=== PATIENT | male | born 1960 | race African-American/Black ===

== ENCOUNTER → 2017-12-22 | Outpatient (CLI) | payer OTHER | END | disposition home or self-care (01) | LOC: KCIC US 08:44 | DX: R16.0 Hepatomegaly, not elsewhere classified (principal) | CPT/HCPCS: 76705 ==

== ENCOUNTER → 2018-10-27 | Outpatient (CLI) | payer OTHER ==
[2015-03-14 18:42] VITALS: BP 187/94
--- NOTE | 2018-10-27 17:41 | KCIC ---
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 Wrist swelling for 2 weeks. Comparison: None are available Technique: Standard multiplanar sequences are obtained. Findings: Fracture through the proximal waist of the scaphoid. The fracture margins are well-defined and this is likely chronic or subacute, and ununited. The proximal pole fragment demonstrates diffusely hypointense T1 signal, with mild edema on T2-weighted images. 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 There is a posterior humpback deformity at the distal fragment at the margin of the fracture. Mild patchy marrow edema throughout the remaining carpal bones, likely reactive. Diffuse soft tissue edema and swelling. Mild intramuscular edema. Small radiocarpal and midcarpal joint effusions. Small distal radioulnar joint effusion. No gross disruption of flexor or extensor tendons. [place] fibrocartilage is intact. Scapholunate ligament is heterogeneous, with some through and through fluid signal compatible with a tear. No apparent lunotriquetral ligament acute rupture. 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 This is greater at the triscaphe. IMPRESSION: 1. Ununited fracture of the proximal waist of the scaphoid. 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 Posterior humpback deformity. 2. Evaluation of other structures is limited by motion degradation. 3. Evidence of scapholunate ligament tear. 4. Joint effusions, with soft tissue edema and muscle edema. Electronically signed by: Josafat Russell MD (10/27/2018 5:38 PM) [id number]
== END | disposition home or self-care (01) ==
LOC: KCIC MRI 16:14
PROVIDERS: ATTEND Family Medicine
DX: S62.032A Displaced fracture of proximal third of navicular [scaphoid] bone of left wrist, initial encounter for closed fracture (principal); S63.522A Sprain of radiocarpal joint of left wrist, initial encounter; M19.032 Primary osteoarthritis, left wrist; M25.432 Effusion, left wrist; R60.0 Localized edema; X58.XXXA Exposure to other specified factors, initial encounter; Y93.89 Activity, other specified; Y92.89 Other specified places as the place of occurrence of the external cause; Y99.8 Other external cause status
CPT/HCPCS: 73221

== ENCOUNTER 2022-01-25 08:51 | Inpatient (IN) | payer OTHER ==
[~2022-01-25] VITALS: Ht 190.5 cm; Wt 102.1 kg
[~2022-01-25 08:51] MED LIST changes: -HYDROmorphone 2 MG/ML INJ. IVP PRN; -IV RINGERS,LACTATED 1000ML 1,000 ML IV SCH; -LIDOCAINE 2% PF 5 ML VIAL. ONE; -MORPHINE SULFATE 2 MG/ML INJ. IVP PRN; -PROCHLORPERAZINE 10 MG/2 ML VIAL. IVP PRN; -PROPOFOL 10 MG/ML (20ML) VIAL. IV ONE; -fentaNYL PF VIAL 100 MCG/2 ML VIAL IVP PRN
[2022-01-25] MEDS ORDERED: THIAMINE INJ 500 MG in IV DEXTROSE 5% 50 ML IV SCH (09:00)
[2022-01-25] MEDS ORDERED: IV RINGERS,LACTATED 1000ML 1,000 ML IV ONE (09:15)
--- NOTE | 2022-01-25 09:32 | RAD ---
XR CHEST 1V History: Lightheadedness Comparison: None. Technique: AP radiograph of the chest. Findings: The lungs are adequately and symmetrically inflated. No airspace consolidation, pleural effusion or p neumothorax. The cardiomediastinal silhouette and pulmonary vasculature are within normal limits. Mil dly tortuous descending aorta. Degenerative changes of the spine and shoulders. Soft tissues are unre markable. Impression: 1. No acute cardiopulmonary process. Electronically signed by: Nir Fox MD (01/25/2022 9:29 AM) [id number]
--- NOTE | 2022-01-25 09:43 | PHYS DOC ---
Past Medical History Past Medical History: High Cholesterol, Hypertension Additional Past Medical Histor: gout Past Surgical History: No Surgical History Smoking Status: Never Smoker Alcohol Use: None Drug Use: None Adult General Chief Complaint Chief Complaint: TREMORS HPI HPI The patient is a 62-year-old male with a history of hypertension, hyperlipidemia and daily alcohol abuse (drinks 1.5 pints daily per him). He presents from the gastroenterology office for evaluation of a variety of symptoms which they were concerned could be reflective of alcohol withdrawal. Patient is acutely tremulous, tachycardic and hypertensive. He tells me that he has not had any alcohol to drink for the last 3 days; he has been prepping for a colonoscopy for the past couple of days. Patient tells me that he has been tremulous for almost a month, on and off. He notes intermittent lightheadedness, shortness of breath, unsteadiness with ambulation and upper abdominal pain as well over that interval. Over the past few days he has had a couple of falls from ground-level, but denies hitting or hurting any part of his body during the episodes. States he has fallen because he has felt unsteady. Yesterday he had 3 episodes of nonbloody vomiting followed by a single episode in which he noticed a little red blood in his vomit after some forceful retching. Patient denies fevers, headache, focal or lateralizing weakness, numbness or tingling, neck stiffness/pain/meningismus, vision changes, chest pain of any kind, lower abdominal pain of any kind, flank pain, midline back pain, dysuria, hematuria, polyuria or oliguria, changes in bowel habits, hematochezia or melena. As above, vital signs are notable for mild tachycardia and a degree of hypertension and are otherwise reassuring. Patient is alert, appropriately interactive, moving all extremities and in no acute distress. Review of Systems Review of Systems A 12 point review of systems was completed and was negative except where noted in HPI above. Current Medications Current Medications Current Medications Medications (Trade) Dose Ordered Sig/Tom Start Time Stop Time Status Last Admin Dose Admin Info (CONTRAST GIVEN -- Rx MONITORING) 1 each PRN DAILY PRN 01/25/22 10:30 01/27/22 10:29 Iohexol (Omnipaque 300 Mg/ml) 60 ml 1X ONCE 01/25/22 10:30 01/25/22 10:31 DC 01/25/22 10:49 60 ML Lorazepam (Ativan Inj) 2 mg 1X ONCE 01/25/22 11:45 01/25/22 11:46 DC 01/25/22 11:16 2 MG Ondansetron HCl (Zofran) 4 mg 1X ONCE 01/25/22 09:45 01/25/22 09:46 DC 01/25/22 09:34 4 MG Pantoprazole Sodium (PROTONIX VIAL for IV PUSH) 80 mg 1X ONCE 01/25/22 09:45 01/25/22 09:46 DC 01/25/22 09:39 80 MG Multivit/ Folic Acid/Iron (Multivitamin ) 1 tab 1X ONCE 01/25/22 09:45 01/25/22 09:46 DC 01/25/22 09:36 1 TAB Ringer's Solution 1,000 ml @ 999 mls/hr 1X ONCE 01/25/22 09:15 01/25/22 10:15 DC 01/25/22 09:27 999 MLS/HR Thiamine HCl 500 mg/Dextrose 55 ml @ 250 mls/hr DAILY 01/25/22 09:00 01/25/22 11:32 DC 01/25/22 09:32 250 MLS/HR Allergies Allergies Allergies Coded Allergies Type Severity Reaction Last Updated Verified No Known Drug Allergies 01/25/22 No Physical Exam Physical Exam 62-year-old male appearing nontoxic and in no acute distress. Head is normocephalic and atraumatic. Mild scleral icterus. Neck is supple and nontender. Oropharynx is moist. Lungs are clear to auscultation at all stations. There is a normal S1 and S2 without rubs or gallops and capillary refill is appropriate, less than 2 seconds globally. Abdomen is soft, nontender and with very mild right upper quadrant and epigastric tenderness to palpation without rebound or guarding. Skin is warm and dry and without cyanosis, clubbing or edema. Psychiatrically, the patient demonstrates appropriate mood and affect and is alert. Evaluation of the extremities reveals BUEs and BLEs neurovascularly intact distally with strength 5-5, sensation intact light touch in all nerve distributions, radial, DP and PT pulses 2+ equal bilaterally, capillary refill less than 2 seconds, hands and feet warm and well-perfused. No dependent peripheral edema distally. No calf tenderness or swelling bilaterally. Homans test is negative bilaterally. Current Patient Data Vital Signs Vital Signs Date Time Temp Pulse Resp B/P (MAP) Pulse Ox O2 Delivery O2 Flow Rate FiO2 01/25/22 10:19 110 22 177/112 (133) 96 Room Air 01/25/22 08:52 98.5 98.5 Lab Values Laboratory Tests Test 01/25/22 09:27 01/25/22 11:19 White Blood Count 7.0 x10^3/uL (4.0-11.0) Red Blood Count 3.47 x10^6/uL (4.30-5.70) L Hemoglobin 12.4 g/dL (13.0-17.5) L Hematocrit 38.3 % (39.0-53.0) L Mean Corpuscular Volume 110 fL (79-100) H Mean Corpuscular Hemoglobin 36 pg (25-35) H Mean Corpuscular Hemoglobin Concent 33 g/dL (31-37) Red Cell Distribution Width 18.6 % (11.5-14.5) H Platelet Count 140 x10^3/uL (140-400) Neutrophils (%) (Auto) 80 % (31-73) H Lymphocytes (%) (Auto) 11 % (24-48) L Monocytes (%) (Auto) 8 % (0-9) Eosinophils (%) (Auto) 0 % (0-3) Basophils (%) (Auto) 1 % (0-3) Neutrophils # (Auto) 5.6 x10^3/uL (1.8-7.7) Lymphocytes # (Auto) 0.8 x10^3/uL (1.0-4.8) L Monocytes # (Auto) 0.6 x10^3/uL (0.0-1.1) Eosinophils # (Auto) 0.0 x10^3/uL (0.0-0.7) Basophils # (Auto) 0.0 x10^3/uL (0.0-0.2) Platelet Estimate Adequate (ADEQUATE) Poikilocytosis Present Anisocytosis Present Macrocytosis Present Prothrombin Time 14.5 SEC (11.7-14.0) H Prothrombin Time INR 1.1 (0.8-1.1) Activated Partial Thromboplast Time 29 SEC (24-38) Sodium Level 142 mmol/L (136-145) Potassium Level 3.8 mmol/L (3.5-5.1) Chloride Level 99 mmol/L (98-107) Carbon Dioxide Level 25 mmol/L (21-32) Anion Gap 18 (6-14) H Blood Urea Nitrogen 17 mg/dL (8-26) Creatinine 1.6 mg/dL (0.7-1.3) H Estimated GFR (Cockcroft-Gault) 53.6 BUN/Creatinine Ratio 11 (6-20) Glucose Level 109 mg/dL (70-99) H Calcium Level 9.5 mg/dL (8.5-10.1) Total Bilirubin 3.5 mg/dL (0.2-1.0) H Direct Bilirubin 1.2 mg/dL (0.0-0.2) H Gamma Glutamyl Transpeptidase 2449 U/L (10-85) H Aspartate Amino Transferase (AST) 368 U/L (15-37) H Alanine Aminotransferase (ALT) 130 U/L (16-63) H Alkaline Phosphatase 191 U/L (46-116) H Troponin I High Sensitivity 30 ng/L (4-75) TV-Mfd-K-Type Natriuretic Peptide 772 pg/mL (0-124) H Total Protein 8.1 g/dL (6.4-8.2) Albumin 4.2 g/dL (3.4-5.0) Albumin/Globulin Ratio 1.1 (1.0-1.7) Lipase 150 U/L (73-393) Thyroid Stimulating Hormone (TSH) 3.497 uIU/mL (0.358-3.74) Ethyl Alcohol Level < 10 mg/dL (0-10) Urine Collection Type Unknown Urine Color [place] Urine Clarity Turbid Urine pH 6.0 (<5.0-8.0) Urine Specific [place] 1.020 (1.000-1.030) Urine Protein 100 mg/dL (NEG-TRACE) Urine Glucose (UA) Negative mg/dL (NEG) Urine Ketones (Stick) 80 mg/dL (NEG) Urine Blood Trace (NEG) Urine Nitrite Positive (NEG) Urine Bilirubin Moderate (NEG) Urine Urobilinogen Dipstick 1.0 mg/dL (0.2 mg/dL) Urine Leukocyte Esterase Negative (NEG) Urine RBC 1-2 /HPF (0-2) Urine WBC 5-10 /HPF (0-4) Urine Bacteria Moderate /HPF (0-FEW) Urine Hyaline Casts Moderate /HPF Urine Mucus Marked /LPF Laboratory Tests 01/25/22 09:27 Laboratory Tests 01/25/22 09:27 EKG EKG Sinus rhythm, rate 114, no acute ST elevation or depression, frequent premature atrial contractions, intervals appropriate, EP interpretation. Repeat EKG: Sinus rhythm, rate 121, no acute ST elevation or depression, CO 144, QRS 82, QTc 457, EP interpretation. Nonischemic tracing, intervals appropriate. Radiology/Procedures Radiology/Procedures US ABDOMEN LIMITED History: Transaminasemia. Cholestasis. Alcohol abuse history. Comparison: CT abdomen and pelvis 01/25/2022 Technique: Sonographic examination of the right upper quadrant of the abdomen. Findings: Pancreas: Poorly visualized due to bowel gas. Liver: The liver measures 18.6 cm. Liver echotexture is diffusely increased with poor through transmission. No focal hepatic lesions. Hepatopetal flow in the portal vein. Gallbladder: No gallstones, wall thickening or pericholecystic fluid. Bile ducts: The common duct measures 5 mm. Right kidney: 10.9 cm length. No mass or hydronephrosis. Aorta/IVC: Visualized portions are unremarkable. Other: No ascites. Impression: 1. Fatty, mildly enlarged liver. 2. No cholelithiasis or acute cholecystitis. Electronically signed by: Nir Anderson MD (01/25/2022 1:05 PM) [id number] DICTATED and SIGNED BY: NIR ANDERSON MD DATE: 01/25/22 [id number] 0 EXAM: CT Head without IV contrast CLINICAL HISTORY: Reason: weakness, unsteadiness w/ ambulation recently, multi ple falls / Spl. Instructions: / History: COMPARISON: None. TECHNIQUE: Routine CT of the head without contrast. PQRS compliance statement - One or more of the following individualized dose reduction techniques were utilized for this study: 1. Automated exposure control 2. Adjustment of the mA and/or kV according to patient size 3. Use of iterative reconstruction technique FINDINGS: There is no evidence of hemorrhage, mass or extra-axial fluid collection. Begum-white differentiation is maintained with no evidence of edema. There are non-specific foci of hypodensity in the periventricular and subcortical white matter of the cerebral hemispheres. There is no mass effect or shift of the intracranial structures. The ventricles and cerebral sulci are prominent for the patients stated age consistent with generalized cerebral volume loss. The cerebellum and brainstem are unremarkable. The calvarium demonstrates no evidence of fracture or focal lesion. Partial opacification of the right maxillary sinus, sinusitis. Otherwise the visualized paranasal sinuses and mastoid air cells. The visualized portions of the orbits are normal. Atherosclerotic calcifications of the intracranial internal carotid and vertebral arteries is seen. IMPRESSION: 1. No evidence for acute intracranial process. 2. The ventricles and cerebral sulci are prominent for the patients stated age consistent with generalized cerebral volume loss. 3. White matter changes likely chronic small vessel disease. 4. Right maxillary sinus disease. Electronically signed by: Armani Casanova MD (01/25/2022 10:57 AM) [id number] DICTATED and SIGNED BY: ARMANI CASANOVA MD DATE: 01/25/[id number] ABDOMEN+PELVIS W History: ABDOMINAL PAIN weakness, unsteadiness w/ ambulation recently,multiple falls Comparison: None. Technique: After administration of intravenous contrast, helical CT of the abdomen and pelvis was performed from the lung bases through the ischial tuberosities. Coronal and sagittal reconstructions were obtained. 60 mL of Omni paque 300 were used. One or more of the following dose reduction techniques were utilized: Automated exposure control (AEC), Adjustment of mA and/or kV according to patient size, Use of iterative reconstruction technique such as ASiR, CT scan done according to ALARA and image gently/image wisely Abdomen Findings: The visualized lung bases are clear. Liver measures 18.5 cm craniocaudad. Diffuse hepatic steatosis. Gallbladder, pancreas, spleen, and bilateral adrenal glands are normal. Symmetric renal enhancement. There is no focal renal mass. There is no hydronephrosis. The visualized loops of small bowel are normal. Colonic diverticulosis. There is no evidence of bowel obstruction. Appendix is normal. There is no free fluid. There is no mesenteric or retroperitoneal adenopathy. The abdominal aorta is normal in caliber. Mild aortoiliac atherosclerotic disease. Pelvis Findings: Urinary bladder is normal. No pelvic free fluid. There is no pelvic or inguinal adenopathy. There is no acute bony abnormality. Degenerative changes of the spine. IMPRESSION: 1. No acute findings. 2. Hepatomegaly and hepatic steatosis. 3. Colonic diverticulosis. Electronically signed by: Troy Mejia MD (01/25/2022 11:12 AM) [id number] DICTATED and SIGNED BY: TROY MEJIA MD DATE: 01/25/22 [id number] 0 XR CHEST 1V History: Lightheadedness Comparison: None. Technique: AP radiograph of the chest. Findings: The lungs are adequately and symmetrically inflated. No airspace consolidation, pleural effusion or pneumothorax. The cardiomediastinal silhouette and pulmonary vasculature are within normal limits. Mildly tortuous descending aorta. Degenerative changes of the spine and shoulders. Soft tissues are unremarkable. Impression: 1. No acute cardiopulmonary process. Electronically signed by: Nir Anderson MD (01/25/2022 9:29 AM) [id number] DICTATED and SIGNED BY: NIR ANDERSON MD DATE: 01/25/22 [id number] 0 Course & Med Decision Making Course & Med Decision Making 62-year-old gentleman appearing to be in acute alcohol withdrawal, most likely from abstaining from alcohol while prepping for colonoscopy over the last day or [address]. [address] IV, give IV fluids, thiamine, multivitamin and a dose of Ativan, and will check large work-up as noted. We will then reevaluate. Given abdominal discomfort and the variety of symptoms patient reports over the last month or so, including unsteadiness and multiple falls, will check head and abdominopelvic CT scans. In context, scant hematemesis seen yesterday was probably from a Allison-Guzman tear although given alcohol abuse history, concern for more ominous causes of GI bleeding exists and patient will certainly benefit from colonoscopy in the very near future. Anticipate the need for admission. Update: Patient resting comfortably in no acute distress on serial reassessments. Imaging without significant evidence of acute process. Patient mildly hyponatremic, with mild renal insufficiency and with some LFT derangements which likely related to his chronic alcohol abuse. Tachycardia and tremulousness are not better after 4 mg of IV Ativan and additional medications and fluids as per flowsheet. Patient and his are insistent that presenting tremor and unsteadiness with ambulation, present over the last 1 month but worsened in recent days, are not alcohol withdrawal symptoms as he has ceased use of alcohol any number of times in recent years 4 months at a time without any withdrawal at all. Perhaps Wernicke's? Requires admission for further evaluation, to include neurology consultation should presenting symptoms not resolve with CIWA protocol. Will bring in for further care under hospitalist Dr. Pabon, who graciously accepts. Dragon Disclaimer Dragon Disclaimer This electronic medical record was generated, in whole or in part, using a voice recognition dictation system. Departure Departure Impression: Primary Impression: Alcohol withdrawal Condition: STABLE Referrals: ALIYAH VELASQUEZ MD (PCP) Problem Qualifiers Primary Impression: Alcohol withdrawal Complication of substance-induced condition: uncomplicated Qualified Codes: F10.230 - Alcohol dependence with withdrawal, uncomplicated NAY GRIFFIN MD Jan 25, 2022 09:43
[2022-01-25] MEDS ORDERED: PANTOPRAZOLE IV PUSH 40 MG VIAL. IVP ONE (09:45)
[2022-01-25] MEDS ORDERED: PRENATAL MULTIVITAMIN TABLET. PO ONE (09:45)
[2022-01-25] MEDS ORDERED: ONDANSETRON PF 4 MG/2 ML VIAL. IVP ONE (09:45)
[2022-01-25 09:56] LABS: BASO % 1 % (0-3); EOS % 0 % (0-3); HEMATOCRIT 38.3 % (39.0-53.0); HEMOGLOBIN 12.4 g/dL (13.0-17.5); LYMPH # 0.8 x10^3/uL (1.0-4.8); LYMPH % 11 % (24-48); MEAN CORPUSCULAR HEMOGLOBIN 36 pg (25-35); MEAN CORPUSCULAR HGB CONC 33 g/dL (31-37); MEAN CORPUSCULAR VOLUME 110 fL (79-100); MONO # 0.6 x10^3/uL (0.0-1.1); MONO % 8 % (0-9); NEUT # 5.6 x10^3/uL (1.8-7.7); NEUT % 80 % (31-73); PLATELET COUNT 140 x10^3/uL (140-400); RED BLOOD COUNT 3.47 x10^6/uL (4.30-5.70); RED CELL DISTRIBUTION WIDTH 18.6 % (11.5-14.5)
[2022-01-25 10:05] LABS: PROTHROMBIN TIME PATIENT 14.5 SEC (11.7-14.0)
[2022-01-25 10:08] LABS: CALCIUM 9.5 mg/dL (8.5-10.1); CREATININE 1.6 mg/dL (0.7-1.3); GFR 53.6; POTASSIUM 3.8 mmol/L (3.5-5.1)
[2022-01-25 10:13] LABS: ALBUMIN 4.2 g/dL (3.4-5.0); ALBUMIN/GLOBULIN RATIO 1.1 (1.0-1.7); DIRECT BILIRUBIN 1.2 mg/dL (0.0-0.2); TOTAL BILIRUBIN 3.5 mg/dL (0.2-1.0); TOTAL PROTEIN 8.1 g/dL (6.4-8.2)
[2022-01-25] MEDS ORDERED: CONTRAST GIVEN. MC PRN (10:30)
[2022-01-25] MEDS ORDERED: IOHEXOL 300 MG/ML 100ML VIAL. IV ONE (10:30)
--- NOTE | 2022-01-25 10:59 | RAD ---
EXAM: CT Head without IV contrast CLINICAL HISTORY: Reason: weakness, unsteadiness w/ ambulation recently, multiple falls / Spl. Instru ctions: / History: COMPARISON: None. TECHNIQUE: Routine CT of the head without contrast. PQRS compliance statement - One or more of the following individualized dose reduction techniques wer e utilized for this study: 1. Automated exposure control 2. Adjustment of the mA and/or kV according to patient size 3. Use of iterative reconstruction technique FINDINGS: There is no evidence of hemorrhage, mass or extra-axial fluid collection. Begum-white differentiation is maintained with no evidence of edema. There are non-specific foci of hypodensity in the periventricular and subcortical white matter of the cerebral hemispheres. There is no mass effect or shift of the intracranial structures. The ventricles and cerebral sulci are prominent for the patients stated age consistent with generaliz ed cerebral volume loss. The cerebellum and brainstem are unremarkable. The calvarium demonstrates no evidence of fracture or focal lesion. Partial opacification of the right maxillary sinus, sinusitis. Otherwise the visualized paranasal sin uses and mastoid air cells. The visualized portions of the orbits are normal. Atherosclerotic calcifications of the intracranial internal carotid and vertebral arteries is seen. IMPRESSION: 1. No evidence for acute intracranial process. 2. The ventricles and cerebral sulci are prominent for the patients stated age consistent with gener alized cerebral volume loss. 3. White matter changes likely chronic small vessel disease. 4. Right maxillary sinus disease. Electronically signed by: Armani Lewis MD (01/25/2022 10:57 AM) [id number]
--- NOTE | 2022-01-25 11:15 | RAD ---
CT ABDOMEN+PELVIS W History: ABDOMINAL PAIN weakness, unsteadiness w/ ambulation recently,multiple falls Comparison: None. Technique: After administration of intravenous contrast, helical CT of the abdomen and pelvis was per formed from the lung bases through the ischial tuberosities. Coronal and sagittal reconstructions wer e obtained. 60 mL of Omnipaque 300 were used. One or more of the following dose reduction techniques were utilized: Automated exposure control (AEC), Adjustment of mA and/or kV according to patient size , Use of iterative reconstruction technique such as ASiR, CT scan done according to ALARA and image g ently/image wisely Abdomen Findings: The visualized lung bases are clear. Liver measures 18.5 cm craniocaudad. Diffuse hepatic steatosis. Gallbladder, pancreas, spleen, and bi lateral adrenal glands are normal. Symmetric renal enhancement. There is no focal renal mass. There is no hydronephrosis. The visualized loops of small bowel are normal. Colonic diverticulosis. There is no evidence of bowel obstruction. Appendix is normal. There is no free fluid. There is no mesenteric or retroperitoneal adenopathy. The abdominal aorta is normal in caliber. Mild aortoiliac atherosclerotic disease. Pelvis Findings: Urinary bladder is normal. No pelvic free fluid. There is no pelvic or inguinal adenopathy. There is no acute bony abnormality. Degenerative changes of the spine. IMPRESSION: 1. No acute findings. 2. Hepatomegaly and hepatic steatosis. 3. Colonic diverticulosis. Electronically signed by: Shant Mejia MD (01/25/2022 11:12 AM) [id number]
--- NOTE | 2022-01-25 11:49 | PDOC1 ---
History and Physical Date of Service: DOS: DATE: 01/25/22 TIME: 11:43 Chief Complaint: Chief Complain: Concern for alcohol withdrawal History of Present Illness: HPI: 62-year-old male with past medical history of hypertension, dyslipidemia and daily alcohol use of about 1-1/2 pints of [place] with coke daily who comes in for 3-month symptoms of tremors and difficulty walking. Patient has actually stopped drinking for the past couple days to in order to prepare for colonoscopy. Patient complains of tremulousness for a month on and off. Patient also notes intermittent lightheadedness, shortness of breath and an unsteady while ambulation. He also complains of upper abdominal pain. Over the past few days he has had a couple of falls from ground-level, but denies hitting or hurting any part of his body during the episodes. States he has fallen because he has felt unsteady. Yesterday he had 3 episodes of nonbloody vomiting followed by a single episode in which he noticed a little red blood in his vomit after some forceful retching. Patient denies fevers, headache, focal or lateralizing weakness, numbness or tingling, neck stiffness/pain/meningismus, vision changes, chest pain of any kind, lower abdominal pain of any kind, flank pain, midline back pain, dysuria, hematuria, polyuria or oliguria, changes in bowel habits, hematochezia or melena. As above, vital signs are notable for mild tachycardia and a degree of hypertension and are otherwise reassuring. Patient is alert, appropriately interactive, moving all extremities and in no acute distress. Past Medical/Surgical History: PMH/PSH: Past Medical History: High Cholesterol, Hypertension. gout Past Surgical History: No Surgical History Allergies: Allergies: Coded Allergies: No Known Drug Allergies (Unverified , 01/25/22) Family History: Family History: Reviewed with no relative findings in the chart Social History: Social History: Smoking Status: Never Smoker Alcohol Use: None Drug Use: None Current Medications: Current Medications Current Medications Ringer's Solution 1,000 ml @ 999 mls/hr 1X ONCE IV Last administered on 01/25/22at 09:27; Start 01/25/22 at 09:15; Stop 01/25/22 at 10:15; Status DC Pantoprazole Sodium (PROTONIX VIAL for IV PUSH) 80 mg 1X ONCE IVP Last administered on 01/25/22at 09:39; Start 01/25/22 at 09:45; Stop 01/25/22 at 09:46; Status DC Lorazepam (Ativan Inj) 2 mg 1X ONCE IVP Last administered on 01/25/22at 09:32; Start 01/25/22 at 09:45; Stop 01/25/22 at 09:46; Status DC Thiamine HCl 500 mg/Dextrose 55 ml @ 250 mls/hr DAILY IV Last administered on 01/25/22at 09:32; Start 01/25/22 at 09:00; Stop 01/25/22 at 11:32; Status DC Multivit/ Folic Acid/Iron (Multivitamin ) 1 tab 1X ONCE PO Last administered on 01/25/22at 09:36; Start 01/25/22 at 09:45; Stop 01/25/22 at 09: 46; Status DC Ondansetron HCl (Zofran) 4 mg 1X ONCE IVP Last administered on 01/25/22at 09:34; Start 01/25/22 at 09:45; Stop 01/25/22 at 09:46; Status DC Iohexol (Omnipaque 300 Mg/ml) 60 ml 1X ONCE IV Last administered on 01/25/22at 10:49; Start 01/25/22 at 10:30; Stop 01/25/22 at 10:31; Status DC Info (CONTRAST GIVEN -- Rx MONITORING) 1 each PRN DAILY PRN MC SEE COMMENTS; Start 01/25/22 at 10:30; Stop 01/27/22 at 10:29 Lorazepam (Ativan Inj) 2 mg 1X ONCE IVP Last administered on 01/25/22at 11:16; Start 01/25/22 at 11:45; Stop 01/25/22 at 11:46 Active Scripts Active Reported Bupropion Xl (Bupropion HCl) 450 Mg Tab.er.24h 150 Mg PO BID Potassium Chloride (Potassium Chloride) 20 Meq Tablet.er 20 Meq PO DAILY Cipro (Ciprofloxacin) 500 Mg/5 Ml Bozena.mc.rec 500 Mg PO BID 7 Days Carvedilol (Carvedilol) 12.5 Mg Tablet 12.5 Mg PO BIDWMEALS Amlodipine Besylate 10 Mg Tablet 10 Mg PO DAILY ROS: Review of Systems Review of System REVIEW OF SYSTEMS: GENERAL: Denies weakness SKIN: No bruising, hair changes or rashes. EYES: No blurred, double or loss of vision. NOSE AND THROAT: No history of nosebleeds, hoarseness or sore throat. HEART: No history of palpitations, chest pain or shortness of breath on exertion. LUNGS: Denies cough, hemoptysis, wheezing or shortness of breath. GASTROINTESTINAL: Denies changes in appetite, nausea, vomiting, diarrhea or constipation. GENITOURINARY: No history of frequency, urgency, hesitancy or nocturia. NEUROLOGIC: Generalized weakness, tremors and lightheadedness. PSYCHIATRIC: No history of panic, anxiety or depression. ENDOCRINE: No history of heat or cold intolerance, polyuria or polydipsia. EXTREMITIES: Denies joint pain, pain on walking or stiffness. Physical Exam: Vital Signs: Vital Signs Date Time Temp Pulse Resp B/P (MAP) Pulse Ox O2 Delivery O2 Flow Rate FiO2 01/25/22 10:19 110 22 177/112 (133) 96 Room Air 01/25/22 08:52 98.5 98.5 Physcial Exam: General: Well developed, well nourished, no acute distress, well appearing HEENT: Pupils equally round and reactive to light, EOMI, no discharge, normal conjunctiva. Mild scleral icterus Neck: Supple, no nuchal rigidity, no JVD, trachea midline, no tenderness Cardiac: RRR, no murmurs, no gallops, no rubs Chest/Lungs: CTAB, no wheeze, no rhonchi, no crackles Abdomen: soft, non-distended, no guarding, no peritoneal signs, non-tender Back: No tenderness Extremities: no edema, pulses intact, non-tender,capillary refill <3 sec bilateral upper and lower extremities, Neuro: Alert and oriented x 4, no focal deficits, normal speech. No lateralization. Strength is 4 out of 5 in lower extremities. No asterixis noted Labs: Labs: Laboratory Tests Test 01/25/22 09:27 White Blood Count 7.0 x10^3/uL (4.0-11.0) Red Blood Count 3.47 x10^6/uL (4.30-5.70) Hemoglobin 12.4 g/dL (13.0-17.5) Hematocrit 38.3 % (39.0-53.0) Mean Corpuscular Volume 110 fL (79-100) Mean Corpuscular Hemoglobin 36 pg (25-35) Mean Corpuscular Hemoglobin Concent 33 g/dL (31-37) Red Cell Distribution Width 18.6 % (11.5-14.5) Platelet Count 140 x10^3/uL (140-400) Neutrophils (%) (Auto) 80 % (31-73) Lymphocytes (%) (Auto) 11 % (24-48) Monocytes (%) (Auto) 8 % (0-9) Eosinophils (%) (Auto) 0 % (0-3) Basophils (%) (Auto) 1 % (0-3) Neutrophils # (Auto) 5.6 x10^3/uL (1.8-7.7) Lymphocytes # (Auto) 0.8 x10^3/uL (1.0-4.8) Monocytes # (Auto) 0.6 x10^3/uL (0.0-1.1) Eosinophils # (Auto) 0.0 x10^3/uL (0.0-0.7) Basophils # (Auto) 0.0 x10^3/uL (0.0-0.2) Prothrombin Time 14.5 SEC (11.7-14.0) Prothromb Time International Ratio 1.1 (0.8-1.1) Activated Partial Thromboplast Time 29 SEC (24-38) Sodium Level 142 mmol/L (136-145) Potassium Level 3.8 mmol/L (3.5-5.1) Chloride Level 99 mmol/L (98-107) Carbon Dioxide Level 25 mmol/L (21-32) Anion Gap 18 (6-14) Blood Urea Nitrogen 17 mg/dL (8-26) Creatinine 1.6 mg/dL (0.7-1.3) Estimated GFR (Cockcroft-Gault) 53.6 BUN/Creatinine Ratio 11 (6-20) Glucose Level 109 mg/dL (70-99) Calcium Level 9.5 mg/dL (8.5-10.1) Total Bilirubin 3.5 mg/dL (0.2-1.0) Direct Bilirubin 1.2 mg/dL (0.0-0.2) Gamma Glutamyl Transpeptidase 2449 U/L (10-85) Aspartate Amino Transf (AST/SGOT) 368 U/L (15-37) Alanine Aminotransferase (ALT/SGPT) 130 U/L (16-63) Alkaline Phosphatase 191 U/L (46-116) Troponin I High Sensitivity 30 ng/L (4-75) OW-Nba-V-Type Natriuretic Peptide 772 pg/mL (0-124) Total Protein 8.1 g/dL (6.4-8.2) Albumin 4.2 g/dL (3.4-5.0) Albumin/Globulin Ratio 1.1 (1.0-1.7) Lipase 150 U/L (73-393) Thyroid Stimulating Hormone (TSH) 3.497 uIU/mL (0.358-3.74) Ethyl Alcohol Level < 10 mg/dL (0-10) Laboratory Tests Test 01/25/22 09:27 White Blood Count 7.0 x10^3/uL (4.0-11.0) Red Blood Count 3.47 x10^6/uL (4.30-5.70) Hemoglobin 12.4 g/dL (13.0-17.5) Hematocrit 38.3 % (39.0-53.0) Mean Corpuscular Volume 110 fL (79-100) Mean Corpuscular Hemoglobin 36 pg (25-35) Mean Corpuscular Hemoglobin Concent 33 g/dL (31-37) Red Cell Distribution Width 18.6 % (11.5-14.5) Platelet Count 140 x10^3/uL (140-400) Neutrophils (%) (Auto) 80 % (31-73) Lymphocytes (%) (Auto) 11 % (24-48) Monocytes (%) (Auto) 8 % (0-9) Eosinophils (%) (Auto) 0 % (0-3) Basophils (%) (Auto) 1 % (0-3) Neutrophils # (Auto) 5.6 x10^3/uL (1.8-7.7) Lymphocytes # (Auto) 0.8 x10^3/uL (1.0-4.8) Monocytes # (Auto) 0.6 x10^3/uL (0.0-1.1) Eosinophils # (Auto) 0.0 x10^3/uL (0.0-0.7) Basophils # (Auto) 0.0 x10^3/uL (0.0-0.2) Prothrombin Time 14.5 SEC (11.7-14.0) Prothromb Time International Ratio 1.1 (0.8-1.1) Activated Partial Thromboplast Time 29 SEC (24-38) Sodium Level 142 mmol/L (136-145) Potassium Level 3.8 mmol/L (3.5-5.1) Chloride Level 99 mmol/L (98-107) Carbon Dioxide Level 25 mmol/L (21-32) Anion Gap 18 (6-14) Blood Urea Nitrogen 17 mg/dL (8-26) Creatinine 1.6 mg/dL (0.7-1.3) Estimated GFR (Cockcroft-Gault) 53.6 BUN/Creatinine Ratio 11 (6-20) Glucose Level 109 mg/dL (70-99) Calcium Level 9.5 mg/dL (8.5-10.1) Total Bilirubin 3.5 mg/dL (0.2-1.0) Direct Bilirubin 1.2 mg/dL (0.0-0.2) Gamma Glutamyl Transpeptidase 2449 U/L (10-85) Aspartate Amino Transf (AST/SGOT) 368 U/L (15-37) Alanine Aminotransferase (ALT/SGPT) 130 U/L (16-63) Alkaline Phosphatase 191 U/L (46-116) Troponin I High Sensitivity 30 ng/L (4-75) MH-Uty-W-Type Natriuretic Peptide 772 pg/mL (0-124) Total Protein 8.1 g/dL (6.4-8.2) Albumin 4.2 g/dL (3.4-5.0) Albumin/Globulin Ratio 1.1 (1.0-1.7) Lipase 150 U/L (73-393) Thyroid Stimulating Hormone (TSH) 3.497 uIU/mL (0.358-3.74) Ethyl Alcohol Level < 10 mg/dL (0-10) Images: Images PROCEDURE: CT HEAD WO CONTRAST EXAM: CT Head without IV contrast CLINICAL HISTORY: Reason: weakness, unsteadiness w/ ambulation recently, multiple falls / Spl. Instructions: / History: COMPARISON: None. TECHNIQUE: Routine CT of the head without contrast. PQRS compliance statement - One or more of the following individualized dose reduction techniques were utilized for this study: 1. Automated exposure control 2. Adjustment of the mA and/or kV according to patient size 3. Use of iterative reconstruction technique FINDINGS: There is no evidence of hemorrhage, mass or extra-axial fluid collection. Begum-white differentiation is maintained with no evidence of edema. There are non-specific foci of hypodensity in the periventricular and subcortic al white matter of the cerebral hemispheres. There is no mass effect or shift of the intracranial structures. The ventricles and cerebral sulci are prominent for the patients stated age consistent with generalized cerebral volume loss. The cerebellum and brainstem are unremarkable. The calvarium demonstrates no evidence of fracture or focal lesion. Partial opacification of the right maxillary sinus, sinusitis. Otherwise the visualized paranasal sinuses and mastoid air cells. The visualized portions of the orbits are normal. Atherosclerotic calcifications of the intracranial internal carotid and vertebral arteries is seen. IMPRESSION: 1. No evidence for acute intracranial process. 2. The ventricles and cerebral sulci are prominent for the patients stated age consistent with generalized cerebral volume loss. 3. White matter changes likely chronic small vessel disease. 4. Right maxillary sinus disease. PROCEDURE: CHEST AP ONLY XR CHEST 1V History: Lightheadedness Comparison: None. Technique: AP radiograph of the chest. Findings: The lungs are adequately and symmetrically inflated. No airspace consolidation, pleural effusion or pneumothorax. The cardiomediastinal silhouette and pulmonary vasculature are within normal limits. Mildly tortuous descending aorta. Degenerative changes of the spine and shoulders. Soft tissues are unremarkable. Impression: 1. No acute cardiopulmonary process. PROCEDURE: CT ABD PELV W/ IV CONTRST ONLY CT ABDOMEN+PELVIS W History: ABDOMINAL PAIN weakness, unsteadiness w/ ambulation recently,multiple falls Comparison: None. Technique: After administration of intravenous contrast, helical CT of the abdomen and pelvis was performed from the lung bases through the ischial t uberosities. Coronal and sagittal reconstructions were obtained. 60 mL of Omnipaque 300 were used. One or more of the following dose reduction techniques were utilized: Automated exposure control (AEC), Adjustment of mA and/or kV according to patient size, Use of iterative reconstruction technique such as ASiR, CT scan done according to ALARA and image gently/image wisely Abdomen Findings: The visualized lung bases are clear. Liver measures 18.5 cm craniocaudad. Diffuse hepatic steatosis. Gallbladder, seo creas, spleen, and bilateral adrenal glands are normal. Symmetric renal enhancement. There is no focal renal mass. There is no hydronephrosis. The visualized loops of small bowel are normal. Colonic diverticulosis. There is no evidence of bowel obstruction. Appendix is normal. There is no free fluid. There is no mesenteric or retroperitoneal adenopathy. The abdominal aorta is normal in caliber. Mild aortoiliac atherosclerotic disease. Pelvis Findings: Urinary bladder is normal. No pelvic free fluid. There is no pelvic or inguinal adenopathy. There is no acute bony abnormality. Degenerative changes of the spine. IMPRESSION: 1. No acute findings. 2. Hepatomegaly and hepatic steatosis. 3. Colonic diverticulosis. Assessment/Plan Assessment/Plan Difficulty walking Generalized weakness Tremors, concern for EtOH withdrawal Acute cystitis Transaminitis SARIKA due to vasomotor nephropathy Macrocytic anemia Alcohol dependence History of sepsis Admit to hospitalist service for further management [place] protocol Cardiology consult for tachycardia Neurology consult for possible Wernicke's encephalopathy Pending B12 and TSH levels PO and IV vitamin folic acid, B1 and B12 supplementation Continue IV fluids Strict I/O Avoid nephrotoxic agents Continue empiric IV antibiotics Pending urine cultures PT OT modalities Lovenox for DVT prophylaxis Protonix GI prophylaxis ADA diet CODE STATUS full Discussed with RN and SW Disposition inpatient management as above DPOA: Justifications for Admission Other Justification KIMBERLEE VELASQUEZ MD Jan 25, 2022 11:49
[2022-01-25 11:53] LABS: BILIRUBIN,URINE MODERATE (NEG); CLARITY,URINE TURBID; COLOR,URINE AMBER; NITRITE,URINE POSITIVE (NEG); PROTEIN,URINE 100 mg/dL (NEG-TRACE)
[2022-01-25 11:54] LABS: BACTERIA,URINE MODERATE /HPF (0-FEW)
[2022-01-25 11:55] LABS: HYALINE CASTS, URINE MODERATE /HPF
--- NOTE | 2022-01-25 12:08 | EKG ---
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
[2022-01-25 12:37] LABS: PLT ESTIMATE ADEQUATE (ADEQUATE)
[2022-01-25 12:38] LABS: ANISOCYTOSIS PRESENT; POIKILOCYTOSIS PRESENT
[2022-01-25] MEDS ORDERED: cefTRIAXone IV Push 1 GM VIAL. IVP ONE (13:00)
--- NOTE | 2022-01-25 13:07 | RAD ---
US ABDOMEN LIMITED History: Transaminasemia. Cholestasis. Alcohol abuse history. Comparison: CT abdomen and pelvis 01/25/2022 Technique: Sonographic examination of the right upper quadrant of the abdomen. Findings: Pancreas: Poorly visualized due to bowel gas. Liver: The liver measures 18.6 cm. Liver echotexture is diffusely increased with poor through transm ission. No focal hepatic lesions. Hepatopetal flow in the portal vein. Gallbladder: No gallstones, wall thickening or pericholecystic fluid. Bile ducts: The common duct measures 5 mm. Right kidney: 10.9 cm length. No mass or hydronephrosis. Aorta/IVC: Visualized portions are unremarkable. Other: No ascites. Impression: 1. Fatty, mildly enlarged liver. 2. No cholelithiasis or acute cholecystitis. Electronically signed by: Nir Fox MD (01/25/2022 1:05 PM) [id number]
[2022-01-25] MEDS ORDERED: ONDANSETRON PF 4 MG/2 ML VIAL. IVP PRN ×2 (13:45→15:45)
[2022-01-25] MEDS ORDERED: ACETAMINOPHEN 325 MG TABLET. PO PRN ×2 (13:45→15:45)
[2022-01-25] MEDS ORDERED: diphenhydrAMINE HCL 25 MG CAPSULE PO PRN ×2 (15:45)
[2022-01-25] MEDS ORDERED: SENNOSIDES 8.6 MG TABLET PO PRN (15:45)
[2022-01-25] MEDS ORDERED: DOCUSATE SODIUM 100 MG CAPSULE. PO PRN (15:45)
[2022-01-25] MEDS ORDERED: LORazepam 0.5 MG TABLET PO PRN (15:45)
[2022-01-25] MEDS ORDERED: ZOLPIDEM 5 MG TABLET. PO PRN (15:45)
[2022-01-25] MEDS ORDERED: diphenhydrAMINE 50 MG/ML VIAL IVP PRN (15:45)
[2022-01-25] MEDS ORDERED: DEXTROSE 50% 25 GM / 50ML DISP.SYRIN. IV PRN (15:45)
[2022-01-25] MEDS ORDERED: PROCHLORPERAZINE 10 MG/2 ML VIAL. IV PRN (15:45)
[2022-01-25] MEDS ORDERED: HALOPERIDOL LACTATE 5 MG/ML VIAL. IVP PRN (16:00)
[2022-01-25 16:05] VITALS: BP 173/108
[2022-01-25] MEDS: IV NORMAL SALINE 1000ML BAG 1,000 ML IV SCH (18:04)
[2022-01-25] MEDS: ENOXAPARIN 40 MG/0.4 ML SYRINGE. SQ SCH (18:12)
--- NOTE | 2022-01-25 18:14 | NUR ---
Pt arrived on unit by bed at 1605 via ED staff. POC/orders reviewed, tele applied. Meal tray and fresh ice water given. Pt has no concerns at this time. Will assume care.
[2022-01-25 19:00] VITALS: BP 145/110
--- NOTE | 2022-01-25 19:00 | NUR ---
Pt's HR is 140-150's. BP elevated all day. Dr. Garcia notified and reordered home meds and ordered prn metoprolol. Will continue to monitor.
[2022-01-25] MEDS ORDERED: METOPROLOL IV PUSH 5 MG/5 ML VIAL. IVP PRN (19:30)
[2022-01-25] MEDS: CARVEDILOL 12.5 MG TABLET. PO SCH (19:37)
[2022-01-25 23:13] VITALS: BP 137/106
[2022-01-26 03:00] VITALS: BP 141/97
[2022-01-26] MEDS: IV NORMAL SALINE 1000ML BAG 1,000 ML IV SCH ×2 (03:05→11:45)
[2022-01-26 07:00] VITALS: BP 163/102
[2022-01-26 08:53] LABS: BASO % 1 % (0-3); EOS # 0.1 x10^3/uL (0.0-0.7); EOS % 4 % (0-3); HEMATOCRIT 32.6 % (39.0-53.0); HEMOGLOBIN 10.7 g/dL (13.0-17.5); LYMPH # 1.1 x10^3/uL (1.0-4.8); LYMPH % 27 % (24-48); MEAN CORPUSCULAR HEMOGLOBIN 36 pg (25-35); MEAN CORPUSCULAR HGB CONC 33 g/dL (31-37); MEAN CORPUSCULAR VOLUME 109 fL (79-100); MONO # 0.3 x10^3/uL (0.0-1.1); MONO % 8 % (0-9); NEUT # 2.4 x10^3/uL (1.8-7.7); NEUT % 61 % (31-73); PLATELET COUNT 87 x10^3/uL (140-400); RED BLOOD COUNT 2.99 x10^6/uL (4.30-5.70); RED CELL DISTRIBUTION WIDTH 18.2 % (11.5-14.5)
[2022-01-26 09:39] LABS: ALBUMIN 3.3 g/dL (3.4-5.0); ALBUMIN/GLOBULIN RATIO 0.9 (1.0-1.7); CALCIUM 8.7 mg/dL (8.5-10.1); GFR 92.2; MAGNESIUM 1.5 mg/dL (1.8-2.4); PHOSPHORUS 2.7 mg/dL (2.6-4.7); TOTAL BILIRUBIN 2.1 mg/dL (0.2-1.0); TOTAL PROTEIN 6.9 g/dL (6.4-8.2)
--- NOTE | 2022-01-26 09:39 | PDOC ---
PROGRESS NOTES Date of Service: DATE: 01/26/22 TIME: 09:39 Objective Objective Vital Signs Date Time Temp Pulse Resp B/P (MAP) Pulse Ox O2 Delivery O2 Flow Rate FiO2 01/26/22 07:00 98.4 91 18 163/102 (122) 96 Room Air 98.4 Intake and Output 01/26/22 07:00 Intake Total 3295 ml Output Total 0 ml Balance 3295 ml Intake Oral 1240 ml IV Total 2055 ml Output Urine Total 0 ml # Voids 1 # Bowel Movements 2 Assessment Assessment Problems Medical Problems: (1) Alcohol withdrawal Status: Acute Plan Plan of Care Problems Medical Problems: (1) Alcohol withdrawal Status: Acute Comment Review of Relevant I have reviewed the following items tomasz (where applicable) has been applied. Labs Laboratory Tests Test 01/25/22 11:19 01/25/22 13:26 01/26/22 07:42 Urine Collection Type Unknown Urine Color [place]elin Urine Clarity Turbid Urine pH 6.0 (<5.0-8.0) Urine Specific [place] 1.020 (1.000-1.030) Urine Protein 100 mg/dL (NEG-TRACE) Urine Glucose (UA) Negative mg/dL (NEG) Urine Ketones (Stick) 80 mg/dL (NEG) Urine Blood Trace (NEG) Urine Nitrite Positive (NEG) Urine Bilirubin Moderate (NEG) Urine Urobilinogen Dipstick 1.0 mg/dL (0.2 mg/dL) Urine Leukocyte Esterase Negative (NEG) Urine RBC 1-2 /HPF (0-2) Urine WBC 5-10 /HPF (0-4) Urine Bacteria Moderate /HPF (0-FEW) Urine Hyaline Casts Moderate /HPF Urine Mucus Marked /LPF Lactic Acid Level 1.2 mmol/L (0.4-2.0) White Blood Count 4.0 x10^3/uL (4.0-11.0) Red Blood Count 2.99 x10^6/uL (4.30-5.70) Hemoglobin 10.7 g/dL (13.0-17.5) Hematocrit 32.6 % (39.0-53.0) Mean Corpuscular Volume 109 fL (79-100) Mean Corpuscular Hemoglobin 36 pg (25-35) Mean Corpuscular Hemoglobin Concent 33 g/dL (31-37) Red Cell Distribution Width 18.2 % (11.5-14.5) Platelet Count 87 x10^3/uL (140-400) Neutrophils (%) (Auto) 61 % (31-73) Lymphocytes (%) (Auto) 27 % (24-48) Monocytes (%) (Auto) 8 % (0-9) Eosinophils (%) (Auto) 4 % (0-3) Basophils (%) (Auto) 1 % (0-3) Neutrophils # (Auto) 2.4 x10^3/uL (1.8-7.7) Lymphocytes # (Auto) 1.1 x10^3/uL (1.0-4.8) Monocytes # (Auto) 0.3 x10^3/uL (0.0-1.1) Eosinophils # (Auto) 0.1 x10^3/uL (0.0-0.7) Basophils # (Auto) 0.0 x10^3/uL (0.0-0.2) Medications Current Medications Acetaminophen (Tylenol) 650 mg PRN Q4HRS PRN PO FEVER > 100.3'F; Start 01/25/22 at 13:45; Stop 01/25/22 at 15:56; Status DC Acetaminophen (Tylenol) 650 mg PRN Q4HRS PRN PO TEMP OVER 100.4F OR MILD PAIN; Start 01/25/22 at 15:45 Amlodipine Besylate (Norvasc) 10 mg DAILY PO Last administered on 01/25/22at 19:37; Start 01/25/22 at 20:00 Carvedilol (Coreg) 12.5 mg BIDWMEALS PO Last administered on 01/25/22at 19:37; Start 01/25/22 at 20:00 Ceftriaxone Sodium (Rocephin) 1 gm 1X ONCE IVP Last administered on 01/25/22at 13:44; Start 01/25/22 at 13:00; Stop 01/25/22 at 13:01; Status DC Ceftriaxone Sodium (Rocephin) 1 gm Q24H IVP ; Start 01/26/22 at 13:00 Cyanocobalamin (Vitamin B-12) 1,000 mcg DAILY PO ; Start 01/26/22 at 09:00 Dextrose (Dextrose 50%-Water Syringe) 12.5 gm PRN Q15MIN PRN IV SEE COMMENTS; Start 01/25/22 at 15:45 Diphenhydramine HCl (Benadryl) 25 mg PRN Q6HRS PRN IVP ITCHING; Start 01/25/22 at 15:45 Diphenhydramine HCl (Benadryl) 25 mg PRN Q6HRS PRN PO ITCHING; Start 01/25/22 at 15:45 Diphenhydramine HCl (Benadryl) 25 mg PRN QHS PRN PO INSOMNIA, 1st CHOICE; Start 01/25/22 at 15:45 Docusate Sodium (Colace) 100 mg PRN DAILY PRN PO HARD STOOLS; Start 01/25/22 at 15:45 Enoxaparin Sodium (Lovenox 40mg Syringe) 40 mg Q24H SQ Last administered on 01/25/22at 18:12; Start 01/25/22 at 16:00 Folic Acid (Folic Acid) 1 mg DAILY PO ; Start 01/26/22 at 09:00 Haloperidol Lactate (Haldol Inj) 5 mg PRN Q4HRS PRN IVP [place] llucinatns,Confusn,Delirium; Start 01/25/22 at 16:00 Info (CONTRAST GIVEN -- Rx MONITORING) 1 each PRN DAILY PRN MC SEE COMMENTS; Start 01/25/22 at 10:30; Stop 01/27/22 at 10:29 Iohexol (Omnipaque 300 Mg/ml) 60 ml 1X ONCE IV Last administered on 01/25/22at 1 0:49; Start 01/25/22 at 10:30; Stop 01/25/22 at 10:31; Status DC Lorazepam (Ativan Inj) 0.25 mg PRN Q4HRS PRN IV ANXIETY / AGITATION; Start 01/25/22 at 15:45 Lorazepam (Ativan Inj) 2 mg 1X ONCE IVP Last administered on 01/25/22at 09:32; Start 01/25/22 at 09:45; Stop 01/25/22 at 09:46; Status DC Lorazepam (Ativan Inj) 2 mg 1X ONCE IVP Last administered on 01/25/22at 11:16; Start 01/25/22 at 11:45; Stop 01/25/22 at 11:46; Status DC Lorazepam (Ativan Inj) 2 mg PRN Q1HR PRN IV For CIWA 8-14; Start 01/25/22 at 16:00 Lorazepam (Ativan Inj) 4 mg PRN Q1HR PRN IV For CIWA 15 or greater; Start 01/25/22 at 16:00 Lorazepam (Ativan) 0.5 mg PRN Q6HRS PRN PO ANXIETY / AGITATION; Start 01/25/22 at 15:45 Lorazepam (Ativan) 4 mg PRN Q1HR PRN PO For CIWA 8-14; Start 01/25/22 at 16:00 Lorazepam (Ativan) 8 mg PRN Q1HR PRN PO For CIWA 15 or greater; Start 01/25/22 at 16:00 Metoprolol Tartrate (Lopressor Vial) 5 mg PRN Q6HRS PRN IVP SEE INSTRUCTIONS Last administered on 01/25/22at 23:09; Start 01/25/22 at 19:30 Ondansetron HCl (Zofran) 4 mg 1X ONCE IVP Last administered on 01/25/22at 09:34; Start 01/25/22 at 09:45; Stop 01/25/22 at 09:46; Status DC Ondansetron HCl (Zofran) 4 mg PRN Q6HRS PRN IVP NAUSEA/VOMITING, 1st CHOICE; Start 01/25/22 at 15:45 Ondansetron HCl (Zofran) 4 mg PRN Q8HRS PRN IVP NAUSEA/VOMITING; Start 01/25/22 at 13:45; Stop 01/25/22 at 15:56; Status DC Pantoprazole Sodium (PROTONIX VIAL for IV PUSH) 80 mg 1X ONCE IVP Last administered on 01/25/22at 09:39; Start 01/25/22 at 09:45; Stop 01/25/22 at 09:46; Status DC Pantoprazole Sodium (Protonix) 40 mg DAILYAC PO ; Start 01/26/22 at 07:30 Multivit/ Folic Acid/Iron (Multivitamin ) 1 tab 1X ONCE PO Last administered on 01/25/22at 09:36; Start 01/25/22 at 09:45; Stop 01/25/22 at 09:46; Status DC Prochlorperazine Edisylate (Compazine) 10 mg PRN Q6HRS PRN IV NAUSEA/VOMITING, 2nd CHOICE; Start 01/25/22 at 15:45 Sennosides (Senna) 17.2 mg PRN BID PRN PO CONSTIPATION; Start 01/25/22 at 15:45 Sodium Chloride 1,000 ml @ 100 mls/hr Q10H IV Last administered on 01/26/22at 03:05; Start 01/25/22 at 15:45 Thiamine HCl 300 mg/Dextrose 53 ml @ 102 mls/hr DAILY IV ; Start 01/26/22 at 09:00 Zolpidem Tartrate (Ambien) 2.5 mg PRN QHS PRN PO INSOMNIA, 2nd CHOICE; Start 01/25/22 at 15:45 Vitals/I & O Vital Sign - Last 24 Hours 01/25/22 01/25/22 01/25/22 01/25/22 09:49 10:19 11:18 12:18 Pulse 112 110 116 118 Resp 19 B/P (MAP) 175/116 (135) 177/112 (133) 180/112 (134) 178/110 (132) Pulse Ox 97 96 97 98 O2 Delivery Room Air Room Air Room Air Room Air 01/25/22 01/25/22 01/25/22 01/25/22 13:18 14:18 15:18 16:05 Temp 98.0 98.0 Pulse 118 120 124 117 Resp 19 B/P (MAP) 167/98 (121) 165/105 (125) 165/136 (146) 173/108 (129) Pulse Ox 99 98 98 97 O2 Delivery Room Air Room Air Room Air Room Air 01/25/22 01/25/22 01/25/22 01/25/22 17:01 19:00 19:05 19:37 Temp 98.6 98.6 Pulse 153 124 Resp 20 B/P (MAP) 145/110 (122) 145/110 Pulse Ox 95 O2 Delivery Room Air Room Air Room Air 01/25/22 01/25/22 01/25/22 01/26/22 19:37 23:09 23:13 03:00 Temp 98.6 98.5 98.6 98.5 Pulse 124 115 115 90 Resp 20 20 B/P (MAP) 145/110 137/106 (116) 141/97 (112) Pulse Ox 96 97 O2 Delivery Room Air Room Air 01/26/22 07:00 Temp 98.4 98.4 Pulse 91 Resp 18 B/P (MAP) 163/102 (122) Pulse Ox 96 O2 Delivery Room Air Intake and Output 01/25/22 01/25/22 01/26/22 15:00 23:00 07:00 Intake Total 1055 ml 700 ml 1540 ml Output Total 0 ml Balance 1055 ml 700 ml 1540 ml DARÍO CARLOS MD Jan 26, 2022 09:39
--- NOTE | 2022-01-26 09:40 | PDOC2 ---
CONSULT Date of Consult Date of Consult DATE: 01/26/22 TIME: 09:40 Reason for Consult Reason for Consult: Tachycardia Referring Physician Referring Physician: Dr. Pabon Identification/Chief Complaint Chief Complaint Tremors and gait instability Source Source: Chart review, Patient History of Present Illness Reason for Visit: 62-year-old male without any previous cardiac history and history of heavy alcohol abuse presented with approximately 3-month history of tremors and gait instability. He denied any chest pain, orthopnea/PND, palpitations. He has had few falls but denied any syncope as such. He was tachycardic on admission prompting cardiology consultation. Past Medical History Past Medical History Hypertension Hyperlipidemia Gout Past Surgical History Past Surgical History: No pertinent history Family History Family History Not contributory Social History Social History Patient drinks approximately 1-1/2 pints of [place] with coke on a daily basis. He denied any smoking or drug abuse Current Problem List Problem List Problems Medical Problems: (1) Alcohol withdrawal Status: Acute Current Medications Current Medications Current Medications Ringer's Solution 1,000 ml @ 999 mls/hr 1X ONCE IV Last administered on 01/25/22 09:27; Start 01/25/22 at 09:15; Stop 01/25/22 at 10:15; Status DC Pantoprazole Sodium (PROTONIX VIAL for IV PUSH) 80 mg 1X ONCE IVP Last administered on 01/25/22 09:39; Start 01/25/22 at 09:45; Stop 01/25/22 at 09:46; Status DC Lorazepam (Ativan Inj) 2 mg 1X ONCE IVP Last administered on 01/25/22 09:32; Start 01/25/22 at 09:45; Stop 01/25/22 at 09:46; Status DC Thiamine HCl 500 mg/Dextrose 55 ml @ 250 mls/hr DAILY IV Last administered on 01/25/22 09:32; Start 01/25/22 at 09:00; Stop 01/25/22 at 11:32; Status DC Multivit/ Folic Acid/Iron (Multivitamin ) 1 tab 1X ONCE PO Last administered on 01/25/22 09:36; Start 01/25/22 at 09:45; Stop 01/25/22 at 09:46; Status DC Ondansetron HCl (Zofran) 4 mg 1X ONCE IVP Last administered on 01/25/22at 09:34; Start 01/25/22 at 09:45; Stop 01/25/22 at 09:46; Status DC Iohexol (Omnipaque 300 Mg/ml) 60 ml 1X ONCE IV Last administered on 01/25/22at 10:49; Start 01/25/22 at 10:30; Stop 01/25/22 at 10:31; Status DC Info (CONTRAST GIVEN -- Rx MONITORING) 1 each PRN DAILY PRN MC SEE COMMENTS; Start 01/25/22 at 10:30; Stop 01/27/22 at 10:29 Lorazepam (Ativan Inj) 2 mg 1X ONCE IVP Last administered on 01/25/22at 11:16; Start 01/25/22 at 11:45; Stop 01/25/22 at 11:46; Status DC Ceftriaxone Sodium (Rocephin) 1 gm 1X ONCE IVP Last administered on 01/25/22at 13:44; Start 01/25/22 at 13:00; Stop 01/25/22 at 13:01; Status DC Ondansetron HCl (Zofran) 4 mg PRN Q8HRS PRN IVP NAUSEA/VOMITING; Start 01/25/22 at 13:45; Stop 01/25/22 at 15:56; Status DC Acetaminophen (Tylenol) 650 mg PRN Q4HRS PRN PO FEVER > 100.3'F; Start 01/25/22 at 13:45; Stop 01/25/22 at 15:56; Status DC Sennosides (Senna) 17.2 mg PRN BID PRN PO CONSTIPATION; Start 01/25/22 at 15:45 Docusate Sodium (Colace) 100 mg PRN DAILY PRN PO HARD STOOLS; Start 01/25/22 at 15:45 Ondansetron HCl (Zofran) 4 mg PRN Q6HRS PRN IVP NAUSEA/VOMITING, 1st CHOICE; Start 01/25/22 at 15:45 Dextrose (Dextrose 50%-Water Syringe) 12.5 gm PRN Q15MIN PRN IV SEE COMMENTS; Start 01/25/22 at 15:45 Sodium Chloride 1,000 ml @ 100 mls/hr Q10H IV Last administered on 01/26/22at 03:05; Start 01/25/22 at 15:45 Acetaminophen (Tylenol) 650 mg PRN Q4HRS PRN PO TEMP OVER 100.4F OR MILD PAIN; Start 01/25/22 at 15:45 Lorazepam (Ativan) 0.5 mg PRN Q6HRS PRN PO ANXIETY / AGITATION; Start 01/25/22 at 15:45 Lorazepam (Ativan Inj) 0.25 mg PRN Q4HRS PRN IV ANXIETY / AGITATION; Start 01/25/22 at 15:45 Enoxaparin Sodium (Lovenox 40mg Syringe) 40 mg Q24H SQ Last administered on 01/25/22at 18:12; Start 01/25/22 at 16:00 Pantoprazole Sodium (Protonix) 40 mg DAILYAC PO ; Start 01/26/22 at 07:30 Prochlorperazine Edisylate (Compazine) 10 mg PRN Q6HRS PRN IV NAUSEA/VOMITING, 2nd CHOICE; Start 01/25/22 at 15:45 Diphenhydramine HCl (Benadryl) 25 mg PRN Q6HRS PRN IVP ITCHING; Start 01/25/22 at 15:45 Diphenhydramine HCl (Benadryl) 25 mg PRN Q6HRS PRN PO ITCHING; Start 01/25/22 at 15:45 Diphenhydramine HCl (Benadryl) 25 mg PRN QHS PRN PO INSOMNIA, 1st CHOICE; Start 01/25/22 at 15:45 Zolpidem Tartrate (Ambien) 2.5 mg PRN QHS PRN PO INSOMNIA, 2nd CHOICE; Start 01/25/22 at 15:45 Thiamine HCl 300 mg/Dextrose 53 ml @ 102 mls/hr DAILY IV ; Start 01/26/22 at 09:00 Folic Acid (Folic Acid) 1 mg DAILY PO ; Start 01/26/22 at 09:00 Cyanocobalamin (Vitamin B-12) 1,000 mcg DAILY PO ; Start 01/26/22 at 09:00 Ceftriaxone Sodium (Rocephin) 1 gm Q24H IVP ; Start 01/26/22 at 13:00 Lorazepam (Ativan) 4 mg PRN Q1HR PRN PO For CIWA 8-14; Start 01/25/22 at 16:00 Lorazepam (Ativan) 8 mg PRN Q1HR PRN PO For CIWA 15 or greater; Start 01/25/22 at 16:00 Lorazepam (Ativan Inj) 2 mg PRN Q1HR PRN IV For CIWA 8-14; Start 01/25/22 at 16:00 Lorazepam (Ativan Inj) 4 mg PRN Q1HR PRN IV For CIWA 15 or greater; Start 01/25/22 at 16:00 Haloperidol Lactate (Haldol Inj) 5 mg PRN Q4HRS PRN IVP Rubio aniyatMarian gipsonusn,Delirium; Start 01/25/22 at 16:00 Amlodipine Besylate (Norvasc) 10 mg DAILY PO Last administered on 01/25/22at 19 :37; Start 01/25/22 at 20:00 Carvedilol (Coreg) 12.5 mg BIDWMEALS PO Last administered on 01/25/22at 19:37; Start 01/25/22 at 20:00 Metoprolol Tartrate (Lopressor Vial) 5 mg PRN Q6HRS PRN IVP SEE INSTRUCTIONS Last administered on 01/25/22at 23:09; Start 01/25/22 at 19:30 Active Scripts Active Reported Bupropion Xl (Bupropion HCl) 450 Mg Tab.er.24h 150 Mg PO BID Potassium Chloride (Potassium Chloride) 20 Meq Tablet.er 20 Meq PO DAILY Cipro (Ciprofloxacin) 500 Mg/5 Ml Bozena.mc.rec 500 Mg PO BID 7 Days Carvedilol (Carvedilol) 12.5 Mg Tablet 12.5 Mg PO BIDWMEALS Amlodipine Besylate 10 Mg Tablet 10 Mg PO DAILY Allergies Allergies: Coded Allergies: No Known Drug Allergies (Unverified , 01/25/22) ROS PSYCHOLOGICAL ROS: No: Hallucinations Eyes: No Loss of vision HEENT: No: Epistaxis Respiratory: No: Hemoptysis Cardiovascular: No Chest Pain, No Palpitations Gastrointestinal: Yes Nausea, Yes Vomiting Genitourinary: No Hematuria Neurological: Yes Tremors; No Seizures Skin: No Rash Physical Exam General: Alert, Oriented X3 HEENT: Atraumatic Lungs: Clear to auscultation Heart: Regular rate Abdomen: Soft Extremities: No edema Neuro: Normal speech Psych/Mental Status: Mental status NL Vitals VITALS Vital Signs Date Time Temp Pulse Resp B/P (MAP) Pulse Ox O2 Delivery O2 Flow Rate FiO2 01/26/22 07:00 98.4 91 18 163/102 (122) 96 Room Air 98.4 Labs Labs Laboratory Tests Test 01/25/22 09:27 01/25/22 11:19 01/25/22 13:26 01/26/22 07:42 White Blood Count 7.0 x10^3/uL (4.0-11.0) 4.0 x10^3/uL (4.0-11.0) Red Blood Count 3.47 x10^6/uL (4.30-5.70) 2.99 x10^6/uL (4.30-5.70) Hemoglobin 12.4 g/dL (13.0-17.5) 10.7 g/dL (13.0-17.5) Hematocrit 38.3 % (39.0-53.0) 32.6 % (39.0-53.0) Mean Corpuscular Volume 110 fL (79-100) 109 fL (79-100) Mean Corpuscular Hemoglobin 36 pg (25-35) 36 pg (25-35) Mean Corpuscular Hemoglobin Concent 33 g/dL (31-37) 33 g/dL (31-37) Red Cell Distribution Width 18.6 % (11.5-14.5) 18.2 % (11.5-14.5) Platelet Count 140 x10^3/uL (140-400) 87 x10^3/uL (140-400) Neutrophils (%) (Auto) 80 % (31-73) 61 % (31-73) Lymphocytes (%) (Auto) 11 % (24-48) 27 % (24-48) Monocytes (%) (Auto) 8 % (0-9) 8 % (0-9) Eosinophils (%) (Auto) 0 % (0-3) 4 % (0-3) Basophils (%) (Auto) 1 % (0-3) 1 % (0-3) Neutrophils # (Auto) 5.6 x10^3/uL (1.8-7.7) 2.4 x10^3/uL (1.8-7.7) Lymphocytes # (Auto) 0.8 x10^3/uL (1.0-4.8) 1.1 x10^3/uL (1.0-4.8) Monocytes # (Auto) 0.6 x10^3/uL (0.0-1.1) 0.3 x10^3/uL (0.0-1.1) Eosinophils # (Auto) 0.0 x10^3/uL (0.0-0.7) 0.1 x10^3/uL (0.0-0.7) Basophils # (Auto) 0.0 x10^3/uL (0.0-0.2) 0.0 x10^3/uL (0.0-0.2) Platelet Estimate Adequate (ADEQUATE) Poikilocytosis Present Anisocytosis Present Macrocytosis Present Prothrombin Time 14.5 SEC (11.7-14.0) Prothromb Time International Ratio 1.1 (0.8-1.1) Activated Partial Thromboplast Time 29 SEC (24-38) Sodium Level 142 mmol/L (136-145) Potassium Level 3.8 mmol/L (3.5-5.1) Chloride Level 99 mmol/L (98-107) Carbon Dioxide Level 25 mmol/L (21-32) Anion Gap 18 (6-14) Blood Urea Nitrogen 17 mg/dL (8-26) Creatinine 1.6 mg/dL (0.7-1.3) Estimated GFR (Cockcroft-Gault) 53.6 BUN/Creatinine Ratio 11 (6-20) Glucose Level 109 mg/dL (70-99) Calcium Level 9.5 mg/dL (8.5-10.1) Total Bilirubin 3.5 mg/dL (0.2-1.0) Direct Bilirubin 1.2 mg/dL (0.0-0.2) Gamma Glutamyl Transpeptidase 2449 U/L (10-85) Aspartate Amino Transf (AST/SGOT) 368 U/L (15-37) Alanine Aminotransferase (ALT/SGPT) 130 U/L (16-63) Alkaline Phosphatase 191 U/L (46-116) Troponin I High Sensitivity 30 ng/L (4-75) VR-Qbs-Q-Type Natriuretic Peptide 772 pg/mL (0-124) Total Protein 8.1 g/dL (6.4-8.2) Albumin 4.2 g/dL (3.4-5.0) Albumin/Globulin Ratio 1.1 (1.0-1.7) Lipase 150 U/L (73-393) Vitamin B12 Level 891 pg/mL (232-1245) Thyroid Stimulating Hormone (TSH) 3.497 uIU/mL (0.358-3.74) Ethyl Alcohol Level < 10 mg/dL (0-10) Urine Collection Type Unknown Urine Color [place] Urine Clarity Turbid Urine pH 6.0 (<5.0-8.0) Urine Specific Vendor 1.020 (1.000-1.030) Urine Protein 100 mg/dL (NEG-TRACE) Urine Glucose (UA) Negative mg/dL (NEG) Urine Ketones (Stick) 80 mg/dL (NEG) Urine Blood Trace (NEG) Urine Nitrite Positive (NEG) Urine Bilirubin Moderate (NEG) Urine Urobilinogen Dipstick 1.0 mg/dL (0.2 mg/dL) Urine Leukocyte Esterase Negative (NEG) Urine RBC 1-2 /HPF (0-2) Urine WBC 5-10 /HPF (0-4) Urine Bacteria Moderate /HPF (0-FEW) Urine Hyaline Casts Moderate /HPF Urine Mucus Marked /LPF Lactic Acid Level 1.2 mmol/L (0.4-2.0) Laboratory Tests Test 01/25/22 11:19 01/25/22 13:26 01/26/22 07:42 Urine Collection Type Unknown Urine Color [place] Urine Clarity Turbid Urine pH 6.0 (<5.0-8.0) Urine Specific Vendor 1.020 (1.000-1.030) Urine Protein 100 mg/dL (NEG-TRACE) Urine Glucose (UA) Negative mg/dL (NEG) Urine Ketones (Stick) 80 mg/dL (NEG) Urine Blood Trace (NEG) Urine Nitrite Positive (NEG) Urine Bilirubin Moderate (NEG) Urine Urobilinogen Dipstick 1.0 mg/dL (0.2 mg/dL) Urine Leukocyte Esterase Negative (NEG) Urine RBC 1-2 /HPF (0-2) Urine WBC 5-10 /HPF (0-4) Urine Bacteria Moderate /HPF (0-FEW) Urine Hyaline Casts Moderate /HPF Urine Mucus Marked /LPF Lactic Acid Level 1.2 mmol/L (0.4-2.0) White Blood Count 4.0 x10^3/uL (4.0-11.0) Red Blood Count 2.99 x10^6/uL (4.30-5.70) Hemoglobin 10.7 g/dL (13.0-17.5) Hematocrit 32.6 % (39.0-53.0) Mean Corpuscular Volume 109 fL (79-100) Mean Corpuscular Hemoglobin 36 pg (25-35) Mean Corpuscular Hemoglobin Concent 33 g/dL (31-37) Red Cell Distribution Width 18.2 % (11.5-14.5) Platelet Count 87 x10^3/uL (140-400) Neutrophils (%) (Auto) 61 % (31-73) Lymphocytes (%) (Auto) 27 % (24-48) Monocytes (%) (Auto) 8 % (0-9) Eosinophils (%) (Auto) 4 % (0-3) Basophils (%) (Auto) 1 % (0-3) Neutrophils # (Auto) 2.4 x10^3/uL (1.8-7.7) Lymphocytes # (Auto) 1.1 x10^3/uL (1.0-4.8) Monocytes # (Auto) 0.3 x10^3/uL (0.0-1.1) Eosinophils # (Auto) 0.1 x10^3/uL (0.0-0.7) Basophils # (Auto) 0.0 x10^3/uL (0.0-0.2) Assessment/Plan Assessment/Plan 1. Tremors and gait instability most probably secondary to chronic alcohol abuse. Neurology team following. Monitor for alcohol withdrawal. 2. Sinus tachycardia, physiologic secondary to withdrawal and dehydration. Heart rate improved with intravenous hydration. Continue beta-blockers. Plan 2D echo and event monitor recording as an outpatient. 3. Hypertension: Better controlled since admission 4. Macrocytic anemia, acute cystitis: Treat per IM Thank you for your consultation DARÍO CARLOS MD Jan 26, 2022 09:40
[2022-01-26] MEDS ORDERED: MAGNESIUM SULFATE 2GM 50 ML IV ONE (10:15)
--- NOTE | 2022-01-26 10:36 | PDOC2 ---
NEUROLOGY CONSULT Date of Service DOS: DATE: 01/26/22 TIME: 10:31 Reason for Consult Reason for Consult: Tremors, unsteady gait Referring Physician Referring Physician: Dr. Pabon Source Source: Chart review, Patient History of Present Illness History of Present Illness The patient is a 62-year-old right-handed male who drinks 1-1/2 pints of [place] Blossom with coke daily, has 3 months of tremors and difficulty walking. He did stop drinking a couple days ago to prepare for colonoscopy but in the holding area for the study, he was unsteady and tremulous, so they decided to hold the test and admit him. He has had some falls but no significant head injuries. There is no history of delirium tremens, stroke, seizure, or other head injury. He denies any headache or focal neurological symptoms. Past Medical History Cardiovascular: HTN Pulmonary: Other (Sleep apnea) GI: GERD, Irritable bowel disease, Peptic Ulcer disease, Other (Diarrhea) Psych: Anxiety, Addictions Infectious disease: Other (C. difficile) Past Surgical History Past Surgical History: Other (Vasectomy, ankle) Family History Family History: DM Social History Social History , alcohol as above, quit smoking, occasional marijuana Current Medications Current Medications Current Medications Ringer's Solution 1,000 ml @ 999 mls/hr 1X ONCE IV Last administered on 01/25/22at 09:27; Start 01/25/22 at 09:15; Stop 01/25/22 at 10:15; Status DC Pantoprazole Sodium (PROTONIX VIAL for IV PUSH) 80 mg 1X ONCE IVP Last administered on 01/25/22at 09:39; Start 01/25/22 at 09:45; Stop 01/25/22 at 09:46; Status DC Lorazepam (Ativan Inj) 2 mg 1X ONCE IVP Last administered on 01/25/22at 09:32; Start 01/25/22 at 09:45; Stop 01/25/22 at 09:46; Status DC Thiamine HCl 500 mg/Dextrose 55 ml @ 250 mls/hr DAILY IV Last administered on 01/25/22at 09:32; Start 01/25/22 at 09:00; Stop 01/25/22 at 11:32; Status DC Multivit/ Folic Acid/Iron (Multivitamin ) 1 tab 1X ONCE PO Last administered on 01/25/22at 09:36; Start 01/25/22 at 09:45; Stop 01/25/22 at 09:46; Status DC Ondansetron HCl (Zofran) 4 mg 1X ONCE IVP Last administered on 01/25/22at 09:34; Start 01/25/22 at 09:45; Stop 01/25/22 at 09:46; Status DC Iohexol (Omnipaque 300 Mg/ml) 60 ml 1X ONCE IV Last administered on 01/25/22at 10:49; Start 01/25/22 at 10:30; Stop 01/25/22 at 10:31; Status DC Info (CONTRAST GIVEN -- Rx MONITORING) 1 each PRN DAILY PRN MC SEE COMMENTS; Start 01/25/22 at 10:30; Stop 01/27/22 at 10:29 Lorazepam (Ativan Inj) 2 mg 1X ONCE IVP Last administered on 01/25/22at 11:16; Start 01/25/22 at 11:45; Stop 01/25/22 at 11:46; Status DC Ceftriaxone Sodium (Rocephin) 1 gm 1X ONCE IVP Last administered on 01/25/22at 13:44; Start 01/25/22 at 13:00; Stop 01/25/22 at 13:01; Status DC Ondansetron HCl (Zofran) 4 mg PRN Q8HRS PRN IVP NAUSEA/VOMITING; Start 01/25/22 at 13:45; Stop 01/25/22 at 15:56; Status DC Acetaminophen (Tylenol) 650 mg PRN Q4HRS PRN PO FEVER > 100.3'F; Start 01/25/22 at 13:45; Stop 01/25/22 at 15:56; Status DC Sennosides (Senna) 17.2 mg PRN BID PRN PO CONSTIPATION; Start 01/25/22 at 15:45 Docusate Sodium (Colace) 100 mg PRN DAILY PRN PO HARD STOOLS; Start 01/25/22 at 15:45 Ondansetron HCl (Zofran) 4 mg PRN Q6HRS PRN IVP NAUSEA/VOMITING, 1st CHOICE; Start 01/25/22 at 15:45 Dextrose (Dextrose 50%-Water Syringe) 12.5 gm PRN Q15MIN PRN IV SEE COMMENTS; Start 01/25/22 at 15:45 Sodium Chloride 1,000 ml @ 100 mls/hr Q10H IV Last administered on 01/26/22at 03:05; Start 01/25/22 at 15:45 Acetaminophen (Tylenol) 650 mg PRN Q4HRS PRN PO TEMP OVER 100.4F OR MILD PAIN; Start 01/25/22 at 15:45 Lorazepam (Ativan) 0.5 mg PRN Q6HRS PRN PO ANXIETY / AGITATION; Start 01/25/22 at 15:45 Lorazepam (Ativan Inj) 0.25 mg PRN Q4HRS PRN IV ANXIETY / AGITATION; Start 01/25/22 at 15:45 Enoxaparin Sodium (Lovenox 40mg Syringe) 40 mg Q24H SQ Last administered on 01/25/22at 18:12; Start 01/25/22 at 16:00 Pantoprazole Sodium (Protonix) 40 mg DAILYAC PO ; Start 01/26/22 at 07:30 Prochlorperazine Edisylate (Compazine) 10 mg PRN Q6HRS PRN IV NAUSEA/VOMITING, 2nd CHOICE; Start 01/25/22 at 15:45 Diphenhydramine HCl (Benadryl) 25 mg PRN Q6HRS PRN IVP ITCHING; Start 01/25/22 at 15:45 Diphenhydramine HCl (Benadryl) 25 mg PRN Q6HRS PRN PO ITCHING; Start 01/25/22 at 15:45 Diphenhydramine HCl (Benadryl) 25 mg PRN QHS PRN PO INSOMNIA, 1st CHOICE; Start 01/25/22 at 15:45 Zolpidem Tartrate (Ambien) 2.5 mg PRN QHS PRN PO INSOMNIA, 2nd CHOICE; Start 01/25/22 at 15:45 Thiamine HCl 300 mg/Dextrose 53 ml @ 102 mls/hr DAILY IV ; Start 01/26/22 at 09:00 Folic Acid (Folic Acid) 1 mg DAILY PO ; Start 01/26/22 at 09:00 Cyanocobalamin (Vitamin B-12) 1,000 mcg DAILY PO ; Start 01/26/22 at 09:00 Ceftriaxone Sodium (Rocephin) 1 gm Q24H IVP ; Start 01/26/22 at 13:00; Stop 01/26/22 at 10:03; Status DC Lorazepam (Ativan) 4 mg PRN Q1HR PRN PO For CIWA 8-14; Start 01/25/22 at 16:00 Lorazepam (Ativan) 8 mg PRN Q1HR PRN PO For CIWA 15 or greater; Start 01/25/22 at 16:00 Lorazepam (Ativan Inj) 2 mg PRN Q1HR PRN IV For CIWA 8-14; Start 01/25/22 at 16:00 Lorazepam (Ativan Inj) 4 mg PRN Q1HR PRN IV For CIWA 15 or greater; Start 01/25/22 at 16:00 Haloperidol Lactate (Haldol Inj) 5 mg PRN Q4HRS PRN IVP Hallucinatns,Confusn,Delirium; Start 01/25/22 at 16:00 Amlodipine Besylate (Norvasc) 10 mg DAILY PO Last administered on 01/25/22at 19:37; Start 01/25/22 at 20:00 Carvedilol (Coreg) 12.5 mg BIDWMEALS PO Last administered on 01/25/22at 19:37; Start 01/25/22 at 20:00 Metoprolol Tartrate (Lopressor Vial) 5 mg PRN Q6HRS PRN IVP SEE INSTRUCTIONS Last administered on 01/25/22at 23:09; Start 01/25/22 at 19:30 Magnesium Sulfate 50 ml @ 25 mls/hr 1X ONCE IV ; Start 01/26/22 at 10:15; Stop 01/26/22 at 12:14 Potassium Chloride (Klor-Con) 40 meq BID PO ; Start 01/26/22 at 10:00; Stop 01/27/22 at 09:59 Active Scripts Active Reported Bupropion Xl (Bupropion HCl) 450 Mg Tab.er.24h 150 Mg PO BID Potassium Chloride (Potassium Chloride) 20 Meq Tablet.er 20 Meq PO DAILY Cipro (Ciprofloxacin) 500 Mg/5 Ml Bozena.mc.rec 500 Mg PO BID 7 Days Carvedilol (Carvedilol) 12.5 Mg Tablet 12.5 Mg PO BIDWMEALS Amlodipine Besylate 10 Mg Tablet 10 Mg PO DAILY Allergies Allergies: Coded Allergies: No Known Drug Allergies (Unverified , 01/25/22) ROS Review of System Negative for fever, chills, weight loss, shortness of breath, chest pain, indigestion, hematochezia, melena, and dysuria. Full 14-point review of systems is negative. Physical Exam Physical Examination General: Well-developed, well-nourished, black male, in no acute distress HEENT: Normocephalic andatraumatic. Temporal arteriespulsatile and nontender. Neck: Supple without bruit, no meningismus Musculoskeletal: Stability:see neurologic. Gait exam:see neurologic. Tone:see neurologic.Strength:see neurologic. Neurological: Mental Status:intact, orientation, memory, attention span/concentration, language, fund of knowledge normal. Cranial Nerves:Pupils equal and reactive to light, extraocular movements areintact, visual leyva are full to confrontation. Facial sensation is normal. There is no facial asymmetry. Vestibulo-ocular reflex is intact. Palate elevates and tongue protrudes in mid line. All other cranial related problems are negative except as mentioned before.Reflexes:2+ and symmetric with flexor plantar responses. Motor:5/5 strength with normal tone and bulk. Coordination:Finger-nose finger and [id number] testing are normal. Rapid alternating movements and fine finger movements are intact. Minimal postural tremor. Gait:Ataxic. Sensory:Normal pinprick, vibration, light touch, proprioception. Vitals VITALS Vital Signs Date Time Temp Pulse Resp B/P (MAP) Pulse Ox O2 Delivery O2 Flow Rate FiO2 01/26/22 07:00 98.4 91 18 163/102 (122) 96 Room Air 98.4 Labs Labs Laboratory Tests Test 01/25/22 09:27 01/25/22 11:19 01/25/22 13:26 01/26/22 07:42 White Blood Count 7.0 x10^3/uL (4.0-11.0) 4.0 x10^3/uL (4.0-11.0) Red Blood Count 3.47 x10^6/uL (4.30-5.70) 2.99 x10^6/uL (4.30-5.70) Hemoglobin 12.4 g/dL (13.0-17.5) 10.7 g/dL (13.0-17.5) Hematocrit 38.3 % (39.0-53.0) 32.6 % (39.0-53.0) Mean Corpuscular Volume 110 fL (79-100) 109 fL (79-100) Mean Corpuscular Hemoglobin 36 pg (25-35) 36 pg (25-35) Mean Corpuscular Hemoglobin Concent 33 g/dL (31-37) 33 g/dL (31-37) Red Cell Distribution Width 18.6 % (11.5-14.5) 18.2 % (11.5-14.5) Platelet Count 140 x10^3/uL (140-400) 87 x10^3/uL (140-400) Neutrophils (%) (Auto) 80 % (31-73) 61 % (31-73) Lymphocytes (%) (Auto) 11 % (24-48) 27 % (24-48) Monocytes (%) (Auto) 8 % (0-9) 8 % (0-9) Eosinophils (%) (Auto) 0 % (0-3) 4 % (0-3) Basophils (%) (Auto) 1 % (0-3) 1 % (0-3) Neutrophils # (Auto) 5.6 x10^3/uL (1.8-7.7) 2.4 x10^3/uL (1.8-7.7) Lymphocytes # (Auto) 0.8 x10^3/uL (1.0-4.8) 1.1 x10^3/uL (1.0-4.8) Monocytes # (Auto) 0.6 x10^3/uL (0.0-1.1) 0.3 x10^3/uL (0.0-1.1) Eosinophils # (Auto) 0.0 x10^3/uL (0.0-0.7) 0.1 x10^3/uL (0.0-0.7) Basophils # (Auto) 0.0 x10^3/uL (0.0-0.2) 0.0 x10^3/uL (0.0-0.2) Platelet Estimate Adequate (ADEQUATE) Poikilocytosis Present Anisocytosis Present Macrocytosis Present Prothrombin Time 14.5 SEC (11.7-14.0) Prothromb Time International Ratio 1.1 (0.8-1.1) Activated Partial Thromboplast Time 29 SEC (24-38) Sodium Level 142 mmol/L (136-145) 140 mmol/L (136-145) Potassium Level 3.8 mmol/L (3.5-5.1) 3.0 mmol/L (3.5-5.1) Chloride Level 99 mmol/L (98-107) 101 mmol/L (98-107) Carbon Dioxide Level 25 mmol/L (21-32) 29 mmol/L (21-32) Anion Gap 18 (6-14) 10 (6-14) Blood Urea Nitrogen 17 mg/dL (8-26) 10 mg/dL (8-26) Creatinine 1.6 mg/dL (0.7-1.3) 1.0 mg/dL (0.7-1.3) Estimated GFR (Cockcroft-Gault) 53.6 92.2 BUN/Creatinine Ratio 11 (6-20) 10 (6-20) Glucose Level 109 mg/dL (70-99) 89 mg/dL (70-99) Calcium Level 9.5 mg/dL (8.5-10.1) 8.7 mg/dL (8.5-10.1) Total Bilirubin 3.5 mg/dL (0.2-1.0) 2.1 mg/dL (0.2-1.0) Direct Bilirubin 1.2 mg/dL (0.0-0.2) Gamma Glutamyl Transpeptidase 2449 U/L (10-85) Aspartate Amino Transf (AST/SGOT) 368 U/L (15-37) 164 U/L (15-37) Alanine Aminotransferase (ALT/SGPT) 130 U/L (16-63) 73 U/L (16-63) Alkaline Phosphatase 191 U/L (46-116) 146 U/L (46-116) Troponin I High Sensitivity 30 ng/L (4-75) SM-Miv-A-Type Natriuretic Peptide 772 pg/mL (0-124) Total Protein 8.1 g/dL (6.4-8.2) 6.9 g/dL (6.4-8.2) Albumin 4.2 g/dL (3.4-5.0) 3.3 g/dL (3.4-5.0) Albumin/Globulin Ratio 1.1 (1.0-1.7) 0.9 (1.0-1.7) Lipase 150 U/L (73-393) Vitamin B12 Level 891 pg/mL (232-1245) Thyroid Stimulating Hormone (TSH) 3.497 uIU/mL (0.358-3.74) Ethyl Alcohol Level < 10 mg/dL (0-10) Urine Collection Type Unknown Urine Color [place] Urine Clarity Turbid Urine pH 6.0 (<5.0-8.0) Urine Specific Nabb 1.020 (1.000-1.030) Urine Protein 100 mg/dL (NEG-TRACE) Urine Glucose (UA) Negative mg/dL (NEG) Urine Ketones (Stick) 80 mg/dL (NEG) Urine Blood Trace (NEG) Urine Nitrite Positive (NEG) Urine Bilirubin Moderate (NEG) Urine Urobilinogen Dipstick 1.0 mg/dL (0.2 mg/dL) Urine Leukocyte Esterase Negative (NEG) Urine RBC 1-2 /HPF (0-2) Urine WBC 5-10 /HPF (0-4) Urine Bacteria Moderate /HPF (0-FEW) Urine Hyaline Casts Moderate /HPF Urine Mucus Marked /LPF Lactic Acid Level 1.2 mmol/L (0.4-2.0) Phosphorus Level 2.7 mg/dL (2.6-4.7) Magnesium Level 1.5 mg/dL (1.8-2.4) Laboratory Tests Test 01/25/22 11:19 01/25/22 13:26 01/26/22 07:42 Urine Collection Type Unknown Urine Color [place] Urine Clarity Turbid Urine pH 6.0 (<5.0-8.0) Urine Specific Nabb 1.020 (1.000-1.030) Urine Protein 100 mg/dL (NEG-TRACE) Urine Glucose (UA) Negative mg/dL (NEG) Urine Ketones (Stick) 80 mg/dL (NEG) Urine Blood Trace (NEG) Urine Nitrite Positive (NEG) Urine Bilirubin Moderate (NEG) Urine Urobilinogen Dipstick 1.0 mg/dL (0.2 mg/dL) Urine Leukocyte Esterase Negative (NEG) Urine RBC 1-2 /HPF (0-2) Urine WBC 5-10 /HPF (0-4) Urine Bacteria Moderate /HPF (0-FEW) Urine Hyaline Casts Moderate /HPF Urine Mucus Marked /LPF Lactic Acid Level 1.2 mmol/L (0.4-2.0) White Blood Count 4.0 x10^3/uL (4.0-11.0) Red Blood Count 2.99 x10^6/uL (4.30-5.70) Hemoglobin 10.7 g/dL (13.0-17.5) Hematocrit 32.6 % (39.0-53.0) Mean Corpuscular Volume 109 fL (79-100) Mean Corpuscular Hemoglobin 36 pg (25-35) Mean Corpuscular Hemoglobin Concent 33 g/dL (31-37) Red Cell Distribution Width 18.2 % (11.5-14.5) Platelet Count 87 x10^3/uL (140-400) Neutrophils (%) (Auto) 61 % (31-73) Lymphocytes (%) (Auto) 27 % (24-48) Monocytes (%) (Auto) 8 % (0-9) Eosinophils (%) (Auto) 4 % (0-3) Basophils (%) (Auto) 1 % (0-3) Neutrophils # (Auto) 2.4 x10^3/uL (1.8-7.7) Lymphocytes # (Auto) 1.1 x10^3/uL (1.0-4.8) Monocytes # (Auto) 0.3 x10^3/uL (0.0-1.1) Eosinophils # (Auto) 0.1 x10^3/uL (0.0-0.7) Basophils # (Auto) 0.0 x10^3/uL (0.0-0.2) Sodium Level 140 mmol/L (136-145) Potassium Level 3.0 mmol/L (3.5-5.1) Chloride Level 101 mmol/L (98-107) Carbon Dioxide Level 29 mmol/L (21-32) Anion Gap 10 (6-14) Blood Urea Nitrogen 10 mg/dL (8-26) Creatinine 1.0 mg/dL (0.7-1.3) Estimated GFR (Cockcroft-Gault) 92.2 BUN/Creatinine Ratio 10 (6-20) Glucose Level 89 mg/dL (70-99) Calcium Level 8.7 mg/dL (8.5-10.1) Phosphorus Level 2.7 mg/dL (2.6-4.7) Magnesium Level 1.5 mg/dL (1.8-2.4) Total Bilirubin 2.1 mg/dL (0.2-1.0) Aspartate Amino Transf (AST/SGOT) 164 U/L (15-37) Alanine Aminotransferase (ALT/SGPT) 73 U/L (16-63) Alkaline Phosphatase 146 U/L (46-116) Total Protein 6.9 g/dL (6.4-8.2) Albumin 3.3 g/dL (3.4-5.0) Albumin/Globulin Ratio 0.9 (1.0-1.7) Images Images CT Head without IV contrast CLINICAL HISTORY: Reason: weakness, unsteadiness w/ ambulation recently, multiple falls / Spl. Instructions: / History: COMPARISON: None. TECHNIQUE: Routine CT of the head without contrast. PQRS compliance statement - One or more of the following individualized dose reduction techniques were utilized for this study: 1. Automated exposure control 2. Adjustment of the mA and/or kV according to patient size 3. Use of iterative reconstruction technique FINDINGS: There is no evidence of hemorrhage, mass or extra-axial fluid collection. Begum-white differentiation is maintained with no evidence of edema. There are non-specific foci of hypodensity in the periventricular and subcortical white matter of the cerebral hemispheres. There is no mass effect or shift of the intracranial structures. The ventricles and cerebral sulci are prominent for the patients stated age consistent with generalized cerebral volume loss. The cerebellum and brainstem are unremarkable. The calvarium demonstrates no evidence of fracture or focal lesion. Partial opacification of the right maxillary sinus, sinusitis. Otherwise the vis ualized paranasal sinuses and mastoid air cells. The visualized portions of the orbits are normal. Atherosclerotic calcifications of the intracranial internal carotid and vertebral arteries is seen. IMPRESSION: 1. No evidence for acute intracranial process. 2. The ventricles and cerebral sulci are prominent for the patients stated age consistent with generalized cerebral volume loss. 3. White matter changes likely chronic small vessel disease. 4. Right maxillary sinus disease. Assessment/Plan Assessment/Plan Impression: Tremor and gait disorder consistent with alcohol abuse. I find no evidence of other neurological process on bedside examination. Recommendations: Physical and Occupational Therapy MRI of the brain on 01/28 He has abstained from alcohol for more than 2 days, he does not appear to be in withdrawal at this time.. Patient understands he needs to stop drinking Appropriate lab work already done Thank you for letting me help with the patient's care. JESSICA PAK MD Jan 26, 2022 10:36
[2022-01-26] MEDS: FOLIC ACID 1 MG TABLET. PO SCH (10:37)
[2022-01-26] MEDS: PANTOPRAZOLE 40 MG TABLET.DR. PO SCH (10:38)
[2022-01-26] MEDS: CARVEDILOL 12.5 MG TABLET. PO SCH ×2 (10:39→17:18)
[2022-01-26] MEDS: CYANOCOBALAMIN (VITAMIN B-12) 1,000 MCG TABLET. PO SCH (10:40)
[2022-01-26] MEDS: THIAMINE INJ 300 MG in IV DEXTROSE 5% 50 ML IV SCH (10:43)
[2022-01-26] MEDS: POTASSIUM CHLORIDE 20 MEQ TABLET.ER. PO SCH ×2 (10:50→21:22)
[2022-01-26 11:00] VITALS: BP 126/77
--- NOTE | 2022-01-26 11:57 | PDOC ---
[employer] PROGRESS NOTE Date of Service DOS: DATE: 01/26/22 TIME: 11:56 Chief Complaint Chief Complaint Assessment/Plan Difficulty walking Generalized weakness Tremors, concern for EtOH withdrawal Acute cystitis Transaminitis SARIKA due to vasomotor nephropathy Macrocytic anemia Alcohol dependence History of sepsis Admit to hospitalist service for further management [facility] protocol Cardiology consult for tachycardia Neurology consult for possible Wernicke's encephalopathy Pending B12 and TSH levels PO and IV vitamin folic acid, B1 and B12 supplementation Continue IV fluids Strict I/O Avoid nephrotoxic agents Continue empiric IV antibiotics Pending urine cultures PT OT modalities Lovenox for DVT prophylaxis Protonix GI prophylaxis ADA diet CODE STATUS full Discussed with RN and SW Disposition inpatient management as above DPOA: History of Present Illness History of Present Illness 62-year-old male with past medical history of hypertension, dyslipidemia and daily alcohol use of about 1-1/2 pints of [place] Blossom with coke daily who comes in for 3-month symptoms of tremors and difficulty walking. Patient has actually stopped drinking for the past couple days to in order to prepare for colonoscopy. Patient complains of tremulousness for a month on and off. Patient also notes intermittent lightheadedness, shortness of breath and an unsteady while ambulation. He also complains of upper abdominal pain. Over the past few days he has had a couple of falls from ground-level, but denies hitting or hurting any part of his body during the episodes. States he has fallen because he has felt unsteady. Yesterday he had 3 episodes of nonbloody vomiting followed by a single episode in which he noticed a little red blood in his vomit after some forceful retching. Patient denies fevers, headache, focal or lateralizing weakness, numbness or tingling, neck stiffness/pain/meningismus, vision changes, chest pain of any kind, lower abdominal pain of any kind, flank pain, midline back pain, dysuria, hematuria, polyuria or oliguria, changes in bowel habits, hematochezia or melena. As above, vital signs are notable for mild tachycardia and a degree of hypertension and are otherwise reassuring. Patient is alert, appropriately interactive, moving all extremities and in no acute distress. 01/26/2022 No acute events overnight. Patient seen examined bedside. Working well with physical therapy and sitting on the side of bed. Still having tremulousness. IV potassium and magnesium replaced for low levels. Evaluated by neurology and pending MRI of the brain on Friday. Vitals/I&O Vitals/I&O: Vital Signs Date Time Temp Pulse Resp B/P (MAP) Pulse Ox O2 Delivery O2 Flow Rate FiO2 01/26/22 10:40 91 163/102 01/26/22 07:00 98.4 18 96 Room Air 98.4 l I & O 01/25/22 01/25/22 01/26/22 15:00 23:00 07:00 Intake Total 1055 ml 700 ml 1540 ml Output Total 0 ml Balance 1055 ml 700 ml 1540 ml Labs Labs: Laboratory Tests Test 01/25/22 13:26 01/26/22 07:42 Lactic Acid Level 1.2 mmol/L (0.4-2.0) White Blood Count 4.0 x10^3/uL (4.0-11.0) Red Blood Count 2.99 x10^6/uL (4.30-5.70) Hemoglobin 10.7 g/dL (13.0-17.5) Hematocrit 32.6 % (39.0-53.0) Mean Corpuscular Volume 109 fL (79-100) Mean Corpuscular Hemoglobin 36 pg (25-35) Mean Corpuscular Hemoglobin Concent 33 g/dL (31-37) Red Cell Distribution Width 18.2 % (11.5-14.5) Platelet Count 87 x10^3/uL (140-400) Neutrophils (%) (Auto) 61 % (31-73) Lymphocytes (%) (Auto) 27 % (24-48) Monocytes (%) (Auto) 8 % (0-9) Eosinophils (%) (Auto) 4 % (0-3) Basophils (%) (Auto) 1 % (0-3) Neutrophils # (Auto) 2.4 x10^3/uL (1.8-7.7) Lymphocytes # (Auto) 1.1 x10^3/uL (1.0-4.8) Monocytes # (Auto) 0.3 x10^3/uL (0.0-1.1) Eosinophils # (Auto) 0.1 x10^3/uL (0.0-0.7) Basophils # (Auto) 0.0 x10^3/uL (0.0-0.2) Sodium Level 140 mmol/L (136-145) Potassium Level 3.0 mmol/L (3.5-5.1) Chloride Level 101 mmol/L (98-107) Carbon Dioxide Level 29 mmol/L (21-32) Anion Gap 10 (6-14) Blood Urea Nitrogen 10 mg/dL (8-26) Creatinine 1.0 mg/dL (0.7-1.3) Estimated GFR (Cockcroft-Gault) 92.2 BUN/Creatinine Ratio 10 (6-20) Glucose Level 89 mg/dL (70-99) Calcium Level 8.7 mg/dL (8.5-10.1) Phosphorus Level 2.7 mg/dL (2.6-4.7) Magnesium Level 1.5 mg/dL (1.8-2.4) Total Bilirubin 2.1 mg/dL (0.2-1.0) Aspartate Amino Transf (AST/SGOT) 164 U/L (15-37) Alanine Aminotransferase (ALT/SGPT) 73 U/L (16-63) Alkaline Phosphatase 146 U/L (46-116) Total Protein 6.9 g/dL (6.4-8.2) Albumin 3.3 g/dL (3.4-5.0) Albumin/Globulin Ratio 0.9 (1.0-1.7) Assessment and Plan Assessmemt and Plan Problems Medical Problems: (1) Alcohol withdrawal Status: Acute Comment Review of Relevant I have reviewed the following items tomasz (where applicable) has been applied. Medications: Current Medications Medications (Trade) Dose Ordered Sig/Tom Route PRN Reason Start Time Stop Time Status Last Admin Dose Admin Ceftriaxone Sodium (Rocephin) 1 gm 1X ONCE IVP 01/25/22 13:00 01/25/22 13:01 DC 01/25/22 13:44 Sodium Chloride 1,000 ml @ 100 mls/hr Q10H IV 01/25/22 15:45 01/26/22 03:05 Enoxaparin Sodium (Lovenox 40mg Syringe) 40 mg Q24H SQ 01/25/22 16:00 01/25/22 18:12 Pantoprazole Sodium (Protonix) 40 mg DAILYAC PO 01/26/22 07:30 01/26/22 10:38 Thiamine HCl 300 mg/Dextrose 53 ml @ 102 mls/hr DAILY IV 01/26/22 09:00 01/26/22 10:43 Folic Acid (Folic Acid) 1 mg DAILY PO 01/26/22 09:00 01/26/22 10:37 Cyanocobalamin (Vitamin B-12) 1,000 mcg DAILY PO 01/26/22 09:00 01/26/22 10:40 Amlodipine Besylate (Norvasc) 10 mg DAILY PO 01/25/22 20:00 01/26/22 10:40 Carvedilol (Coreg) 12.5 mg BIDWMEALS PO 01/25/22 20:00 01/26/22 10:39 Metoprolol Tartrate (Lopressor Vial) 5 mg PRN Q6HRS PRN IVP SEE INSTRUCTIONS 01/25/22 19:30 01/25/22 23:09 Magnesium Sulfate 50 ml @ 25 mls/hr 1X ONCE IV 01/26/22 10:15 01/26/22 12:14 01/26/22 10:49 Potassium Chloride (Klor-Con) 40 meq BID PO 01/26/22 10:00 01/27/22 09:59 01/26/22 10:50 Justifications for Admission Other Justification Alcohol withdrawal KIMBERLEE VELASQUEZ MD Jan 26, 2022 11:57
[2022-01-26] MEDS ORDERED: cefTRIAXone IV Push 1 GM VIAL. IVP SCH (13:00)
[2022-01-26 15:00] VITALS: BP 126/92
[2022-01-26] MEDS: ENOXAPARIN 40 MG/0.4 ML SYRINGE. SQ SCH (17:18)
[2022-01-26 19:34] VITALS: BP 138/92
[2022-01-26] MEDS: LACTOBACILLUS RHAMNOSUS GG 1 CAPSULE. PO SCH (21:22)
[2022-01-26 23:31] VITALS: BP 134/89
[2022-01-27] MEDS: IV NORMAL SALINE 1000ML BAG 1,000 ML IV SCH ×4 (03:13→21:41)
[2022-01-27 03:20] VITALS: BP 132/94
[2022-01-27 07:00] VITALS: BP 159/132
--- NOTE | 2022-01-27 08:26 | PDOC ---
PROGRESS NOTES Date of Service: DATE: 01/27/22 TIME: 08:25 Subjective Subjective Feeling better, no new complaints, tremors improved Objective Objective Vital Signs Date Time Temp Pulse Resp B/P (MAP) Pulse Ox O2 Delivery O2 Flow Rate FiO2 01/27/22 03:20 98.0 78 18 132/94 (107) 96 Room Air 98.0 Intake and Output 01/27/22 07:00 Intake Total 260 ml Output Total 550 ml Balance -290 ml Intake Oral 260 ml Output Urine Total 550 ml # Bowel Movements 2 Physical Exam Abdomen: Soft Heart: Regular rate Extremities: No edema General: Alert, Oriented X3 HEENT: Atraumatic Lungs: Clear to auscultation Neuro: Normal speech Psych/Mental Status: Mental status NL Assessment Assessment 1. Tremors and gait instability most probably secondary to chronic alcohol abuse. Neurology team following. Monitor for alcohol withdrawal. 2. Sinus tachycardia, physiologic secondary to withdrawal and dehydration. Heart rate improved with intravenous hydration. Telemetry did not show any significant arrhythmias. Continue beta-blockers. Plan 2D echo and event monitor recording as an outpatient. 3. Hypertension: Better controlled since admission 4. Macrocytic anemia, acute cystitis: Treat per IM 5. Hypokalemia, hypomagnesemia: Replace Plan Plan of Care Problems Medical Problems: (1) Alcohol withdrawal Status: Acute Comment Review of Relevant I have reviewed the following items tomasz (where applicable) has been applied. Labs Microbiology 01/25/22 Blood Culture - Preliminary, Resulted NO GROWTH AFTER 1 DAY 01/25/22 Urine Culture - Final, Complete Medications Current Medications Ceftriaxone Sodium (Rocephin) 1 gm Q24H IVP ; Start 01/26/22 at 13:00; Stop 01/26/22 at 10:03; Status DC Cyanocobalamin (Vitamin B-12) 1,000 mcg DAILY PO Last administered on 01/26/22at 10:40; Start 01/26/22 at 09:00 Folic Acid (Folic Acid) 1 mg DAILY PO Last administered on 01/26/22at 10:37; Start 01/26/22 at 09:00 Lactobacillus Rhamnosus (Culturelle) 1 cap BID PO Last administered on 01/26/22at 21:22; Start 01/26/22 at 21:00 Magnesium Sulfate 50 ml @ 25 mls/hr 1X ONCE IV Last administered on 01/26/22at 10:49; Start 01/26/22 at 10:15; Stop 01/26/22 at 12:14; Status DC Potassium Chloride (Klor-Con) 40 meq BID PO Last administered on 01/26/22at 21:2 2; Start 01/26/22 at 10:00; Stop 01/27/22 at 09:59 Thiamine HCl 300 mg/Dextrose 53 ml @ 102 mls/hr DAILY IV Last administered on 01/26/22at 10:43; Start 01/26/22 at 09:00 Vitals/I & O Vital Sign - Last 24 Hours 01/26/22 01/26/22 01/26/22 01/26/22 10:39 10:40 11:00 15:00 Temp 98.5 97.6 98.5 97.6 Pulse 91 91 104 101 Resp 18 20 B/P (MAP) 163/102 163/102 126/77 (93) 126/92 (103) Pulse Ox 100 97 O2 Delivery Room Air Room Air 01/26/22 01/26/22 01/26/22 01/26/22 17:18 19:34 20:04 23:31 Temp 98.3 98.2 98.3 98.2 Pulse 104 86 83 Resp 20 20 B/P (MAP) 126/77 138/92 (107) 134/89 (104) Pulse Ox 98 98 O2 Delivery Room Air Room Air Room Air 01/27/22 03:20 Temp 98.0 98.0 Pulse 78 Resp 18 B/P (MAP) 132/94 (107) Pulse Ox 96 O2 Delivery Room Air Intake and Output 01/26/22 01/26/22 01/27/22 15:00 23:00 07:00 Intake Total 260 ml Output Total 350 ml 200 ml Balance -350 ml 60 ml DARÍO CARLOS MD Jan 27, 2022 08:26
[2022-01-27 08:35] LABS: BASO % 1 % (0-3); EOS # 0.2 x10^3/uL (0.0-0.7); EOS % 4 % (0-3); HEMATOCRIT 31.3 % (39.0-53.0); HEMOGLOBIN 10.2 g/dL (13.0-17.5); LYMPH # 1.5 x10^3/uL (1.0-4.8); LYMPH % 31 % (24-48); MEAN CORPUSCULAR HEMOGLOBIN 36 pg (25-35); MEAN CORPUSCULAR HGB CONC 33 g/dL (31-37); MEAN CORPUSCULAR VOLUME 111 fL (79-100); MONO # 0.5 x10^3/uL (0.0-1.1); MONO % 10 % (0-9); NEUT # 2.7 x10^3/uL (1.8-7.7); NEUT % 56 % (31-73); PLATELET COUNT 66 x10^3/uL (140-400); RED BLOOD COUNT 2.81 x10^6/uL (4.30-5.70); RED CELL DISTRIBUTION WIDTH 18.7 % (11.5-14.5); WHITE BLOOD COUNT 4.9 x10^3/uL (4.0-11.0)
[2022-01-27 08:48] LABS: CALCIUM 8.7 mg/dL (8.5-10.1); CREATININE 1.2 mg/dL (0.7-1.3); GFR 74.7; MAGNESIUM 1.6 mg/dL (1.8-2.4); POTASSIUM 3.3 mmol/L (3.5-5.1)
[2022-01-27] MEDS: CYANOCOBALAMIN (VITAMIN B-12) 1,000 MCG TABLET. PO SCH (09:41)
[2022-01-27] MEDS: PANTOPRAZOLE 40 MG TABLET.DR. PO SCH (09:41)
[2022-01-27] MEDS: POTASSIUM CHLORIDE 20 MEQ TABLET.ER. PO SCH (09:41)
[2022-01-27] MEDS: LACTOBACILLUS RHAMNOSUS GG 1 CAPSULE. PO SCH ×2 (09:41→21:39)
[2022-01-27] MEDS: FOLIC ACID 1 MG TABLET. PO SCH (09:42)
[2022-01-27] MEDS: CARVEDILOL 12.5 MG TABLET. PO SCH ×2 (09:42→17:44)
[2022-01-27] MEDS: THIAMINE INJ 300 MG in IV DEXTROSE 5% 50 ML IV SCH (09:42)
--- NOTE | 2022-01-27 10:56 | PDOC ---
[facility] PROGRESS NOTE Date of Service DOS: DATE: 01/27/22 TIME: 10:55 Chief Complaint Chief Complaint Assessment/Plan Difficulty walking Generalized weakness Tremors, concern for EtOH withdrawal Acute cystitis Transaminitis SARIKA due to vasomotor nephropathy Macrocytic anemia Alcohol dependence History of sepsis Admit to hospitalist service for further management [facility] protocol Cardiology consult for tachycardia Neurology consult for possible Wernicke's encephalopathy Pending B12 and TSH levels PO and IV vitamin folic acid, B1 and B12 supplementation Continue IV fluids Strict I/O Avoid nephrotoxic agents Continue empiric IV antibiotics Pending urine cultures PT OT modalities Lovenox for DVT prophylaxis Protonix GI prophylaxis ADA diet CODE STATUS full Discussed with RN and SW Disposition inpatient management as above DPOA: History of Present Illness History of Present Illness 62-year-old male with past medical history of hypertension, dyslipidemia and daily alcohol use of about 1-1/2 pints of [place] with coke daily who comes in for 3-month symptoms of tremors and difficulty walking. Patient has actually stopped drinking for the past couple days to in order to prepare for colonoscopy. Patient complains of tremulousness for a month on and off. Patient also notes intermittent lightheadedness, shortness of breath and an unsteady while ambulation. He also complains of upper abdominal pain. Over the past few days he has had a couple of falls from ground-level, but denies hitting or hurting any part of his body during the episodes. States he has fallen because he has felt unsteady. Yesterday he had 3 episodes of nonbloody vomiting followed by a single episode in which he noticed a little red blood in his vomit after some forceful retching. Patient denies fevers, headache, focal or lateralizing weakness, numbness or tingling, neck stiffness/pain/meningismus, vision changes, chest pain of any kind, lower abdominal pain of any kind, flank pain, midline back pain, dysuria, hematuria, polyuria or oliguria, changes in bowel habits, hematochezia or melena. As above, vital signs are notable for mild tachycardia and a degree of hypertension and are otherwise reassuring. Patient is alert, appropriately interactive, moving all extremities and in no acute distress. 01/26/2022 No acute events overnight. Patient seen examined bedside. Working well with physical therapy and sitting on the side of bed. Still having tremulousness. IV potassium and magnesium replaced for low levels. Evaluated by neurology and pending MRI of the brain on Friday. 01/27/2022 No acute events overnight. Patient seen examined bedside. Clinically improved. Tremors have improved. Will replace potassium magnesium with IV KCl and IV magnesium sulfate. Patient's chart, labs, images were reviewed and discussed with RN. Pending MRI tomorrow Vitals/I&O Vitals/I&O: Vital Signs Date Time Temp Pulse Resp B/P (MAP) Pulse Ox O2 Delivery O2 Flow Rate FiO2 01/27/22 09:42 91 159/132 01/27/22 07:00 97.8 18 96 Room Air 97.8 I & O 01/26/22 01/26/22 01/27/22 15:00 23:00 07:00 Intake Total 260 ml Output Total 350 ml 200 ml Balance -350 ml 60 ml Physical Exam General: Alert, Oriented X3 Heart: Regular rate Lungs: Clear Abdomen: Soft Extremities: No clubbing, No edema Skin: No rashes Labs Labs: Laboratory Tests Test 01/27/22 07:35 White Blood Count 4.9 x10^3/uL (4.0-11.0) Red Blood Count 2.81 x10^6/uL (4.30-5.70) Hemoglobin 10.2 g/dL (13.0-17.5) Hematocrit 31.3 % (39.0-53.0) Mean Corpuscular Volume 111 fL (79-100) Mean Corpuscular Hemoglobin 36 pg (25-35) Mean Corpuscular Hemoglobin Concent 33 g/dL (31-37) Red Cell Distribution Width 18.7 % (11.5-14.5) Platelet Count 66 x10^3/uL (140-400) Neutrophils (%) (Auto) 56 % (31-73) Lymphocytes (%) (Auto) 31 % (24-48) Monocytes (%) (Auto) 10 % (0-9) Eosinophils (%) (Auto) 4 % (0-3) Basophils (%) (Auto) 1 % (0-3) Neutrophils # (Auto) 2.7 x10^3/uL (1.8-7.7) Lymphocytes # (Auto) 1.5 x10^3/uL (1.0-4.8) Monocytes # (Auto) 0.5 x10^3/uL (0.0-1.1) Eosinophils # (Auto) 0.2 x10^3/uL (0.0-0.7) Basophils # (Auto) 0.0 x10^3/uL (0.0-0.2) Sodium Level 139 mmol/L (136-145) Potassium Level 3.3 mmol/L (3.5-5.1) Chloride Level 103 mmol/L (98-107) Carbon Dioxide Level 25 mmol/L (21-32) Anion Gap 11 (6-14) Blood Urea Nitrogen 6 mg/dL (8-26) Creatinine 1.2 mg/dL (0.7-1.3) Estimated GFR (Cockcroft-Gault) 74.7 Glucose Level 95 mg/dL (70-99) Calcium Level 8.7 mg/dL (8.5-10.1) Magnesium Level 1.6 mg/dL (1.8-2.4) Assessment and Plan Assessmemt and Plan Problems Medical Problems: (1) Alcohol withdrawal Status: Acute Comment Review of Relevant I have reviewed the following items tomasz (where applicable) has been applied. Medications: Current Medications Medications (Trade) Dose Ordered Sig/Tom Route PRN Reason Start Time Stop Time Status Last Admin Dose Admin Lactobacillus Rhamnosus (Culturelle) 1 cap BID PO 01/26/22 21:00 01/27/22 09:41 Justifications for Admission Other Justification Alcohol withdrawal KIMBERLEE VELASQUEZ MD Jan 27, 2022 10:56
[2022-01-27 11:00] VITALS: BP 115/76
[2022-01-27] MEDS ORDERED: MAGNESIUM SULFATE 2GM 50 ML IV ONE (11:00)
[2022-01-27] MEDS: POTASSIUM CHLORIDE 10MEQ 100 ML IV SCH ×4 (13:47→21:39)
[2022-01-27 15:00] VITALS: BP 149/94
[2022-01-27] MEDS: ENOXAPARIN 40 MG/0.4 ML SYRINGE. SQ SCH (15:43)
[2022-01-27 19:49] VITALS: BP 125/85
[2022-01-27 23:18] VITALS: BP 129/96
[2022-01-28 03:04] VITALS: BP 151/98
[2022-01-28 06:28] LABS: BASO % 1 % (0-3); EOS # 0.2 x10^3/uL (0.0-0.7); EOS % 4 % (0-3); HEMATOCRIT 30.6 % (39.0-53.0); HEMOGLOBIN 9.7 g/dL (13.0-17.5); LYMPH # 1.4 x10^3/uL (1.0-4.8); LYMPH % 33 % (24-48); MEAN CORPUSCULAR HEMOGLOBIN 36 pg (25-35); MEAN CORPUSCULAR HGB CONC 32 g/dL (31-37); MEAN CORPUSCULAR VOLUME 114 fL (79-100); MONO # 0.4 x10^3/uL (0.0-1.1); MONO % 9 % (0-9); NEUT # 2.2 x10^3/uL (1.8-7.7); NEUT % 53 % (31-73); PLATELET COUNT 61 x10^3/uL (140-400); RED BLOOD COUNT 2.68 x10^6/uL (4.30-5.70); RED CELL DISTRIBUTION WIDTH 18.7 % (11.5-14.5); WHITE BLOOD COUNT 4.2 x10^3/uL (4.0-11.0)
[2022-01-28 06:56] LABS: CALCIUM 8.6 mg/dL (8.5-10.1); GFR 92.2; MAGNESIUM 1.7 mg/dL (1.8-2.4); POTASSIUM 3.6 mmol/L (3.5-5.1)
[2022-01-28 07:00] VITALS: BP 166/112
[2022-01-28] MEDS: LACTOBACILLUS RHAMNOSUS GG 1 CAPSULE. PO SCH ×2 (08:37→21:39)
[2022-01-28] MEDS: FOLIC ACID 1 MG TABLET. PO SCH (08:38)
[2022-01-28] MEDS: CYANOCOBALAMIN (VITAMIN B-12) 1,000 MCG TABLET. PO SCH (08:38)
[2022-01-28] MEDS: CARVEDILOL 12.5 MG TABLET. PO SCH ×2 (08:38→17:52)
[2022-01-28] MEDS: PANTOPRAZOLE 40 MG TABLET.DR. PO SCH (08:38)
--- NOTE | 2022-01-28 09:24 | PDOC ---
PROGRESS NOTES Date of Service DATE: 01/28/22 TIME: 09:20 Assessment Problems Medical Problems: (1) Alcohol withdrawal Status: Acute Tremor and gait disorder consistent with alcohol abuse. I find no evidence of other neurological process on bedside examination. No evidence of acute alcohol withdrawal now Plan Physical and Occupational Therapy ordered, no notes in the chart yet MRI of the brain today Subjective No complaints Objective Vital Signs Date Time Temp Pulse Resp B/P (MAP) Pulse Ox O2 Delivery O2 Flow Rate FiO2 01/28/22 08:38 82 166/112 01/28/22 07:00 98.3 20 95 Room Air 98.3 Intake and Output 01/28/22 07:00 Intake Total 270 ml Output Total 850 ml Balance -580 ml Intake Oral 270 ml Output Urine Total 850 ml # Bowel Movements 1 PHYSICAL EXAM Alert. Oriented to time, place and person. PERRL. EOMI. CN: no focal findings. Muscle tone: normal. Muscle strength: 5/5 DTR: 1+ Plantar reflex: Flexor Gait: not examined in bed. Sensory exam: Normal. No cerebellar signs elicited. Review of Relevant I have reviewed the following items tomasz (where applicable) has been applied. Labs Laboratory Tests Test 01/27/22 07:35 01/28/22 04:50 White Blood Count 4.9 x10^3/uL (4.0-11.0) 4.2 x10^3/uL (4.0-11.0) Red Blood Count 2.81 x10^6/uL (4.30-5.70) 2.68 x10^6/uL (4.30-5.70) Hemoglobin 10.2 g/dL (13.0-17.5) 9.7 g/dL (13.0-17.5) Hematocrit 31.3 % (39.0-53.0) 30.6 % (39.0-53.0) Mean Corpuscular Volume 111 fL (79-100) 114 fL (79-100) Mean Corpuscular Hemoglobin 36 pg (25-35) 36 pg (25-35) Mean Corpuscular Hemoglobin Concent 33 g/dL (31-37) 32 g/dL (31-37) Red Cell Distribution Width 18.7 % (11.5-14.5) 18.7 % (11.5-14.5) Platelet Count 66 x10^3/uL (140-400) 61 x10^3/uL (140-400) Neutrophils (%) (Auto) 56 % (31-73) 53 % (31-73) Lymphocytes (%) (Auto) 31 % (24-48) 33 % (24-48) Monocytes (%) (Auto) 10 % (0-9) 9 % (0-9) Eosinophils (%) (Auto) 4 % (0-3) 4 % (0-3) Basophils (%) (Auto) 1 % (0-3) 1 % (0-3) Neutrophils # (Auto) 2.7 x10^3/uL (1.8-7.7) 2.2 x10^3/uL (1.8-7.7) Lymphocytes # (Auto) 1.5 x10^3/uL (1.0-4.8) 1.4 x10^3/uL (1.0-4.8) Monocytes # (Auto) 0.5 x10^3/uL (0.0-1.1) 0.4 x10^3/uL (0.0-1.1) Eosinophils # (Auto) 0.2 x10^3/uL (0.0-0.7) 0.2 x10^3/uL (0.0-0.7) Basophils # (Auto) 0.0 x10^3/uL (0.0-0.2) 0.0 x10^3/uL (0.0-0.2) Sodium Level 139 mmol/L (136-145) 140 mmol/L (136-145) Potassium Level 3.3 mmol/L (3.5-5.1) 3.6 mmol/L (3.5-5.1) Chloride Level 103 mmol/L (98-107) 105 mmol/L (98-107) Carbon Dioxide Level 25 mmol/L (21-32) 27 mmol/L (21-32) Anion Gap 11 (6-14) 8 (6-14) Blood Urea Nitrogen 6 mg/dL (8-26) 4 mg/dL (8-26) Creatinine 1.2 mg/dL (0.7-1.3) 1.0 mg/dL (0.7-1.3) Estimated GFR (Cockcroft-Gault) 74.7 92.2 Glucose Level 95 mg/dL (70-99) 79 mg/dL (70-99) Calcium Level 8.7 mg/dL (8.5-10.1) 8.6 mg/dL (8.5-10.1) Magnesium Level 1.6 mg/dL (1.8-2.4) 1.7 mg/dL (1.8-2.4) Laboratory Tests Test 01/28/22 04:50 White Blood Count 4.2 x10^3/uL (4.0-11.0) Red Blood Count 2.68 x10^6/uL (4.30-5.70) Hemoglobin 9.7 g/dL (13.0-17.5) Hematocrit 30.6 % (39.0-53.0) Mean Corpuscular Volume 114 fL (79-100) Mean Corpuscular Hemoglobin 36 pg (25-35) Mean Corpuscular Hemoglobin Concent 32 g/dL (31-37) Red Cell Distribution Width 18.7 % (11.5-14.5) Platelet Count 61 x10^3/uL (140-400) Neutrophils (%) (Auto) 53 % (31-73) Lymphocytes (%) (Auto) 33 % (24-48) Monocytes (%) (Auto) 9 % (0-9) Eosinophils (%) (Auto) 4 % (0-3) Basophils (%) (Auto) 1 % (0-3) Neutrophils # (Auto) 2.2 x10^3/uL (1.8-7.7) Lymphocytes # (Auto) 1.4 x10^3/uL (1.0-4.8) Monocytes # (Auto) 0.4 x10^3/uL (0.0-1.1) Eosinophils # (Auto) 0.2 x10^3/uL (0.0-0.7) Basophils # (Auto) 0.0 x10^3/uL (0.0-0.2) Sodium Level 140 mmol/L (136-145) Potassium Level 3.6 mmol/L (3.5-5.1) Chloride Level 105 mmol/L (98-107) Carbon Dioxide Level 27 mmol/L (21-32) Anion Gap 8 (6-14) Blood Urea Nitrogen 4 mg/dL (8-26) Creatinine 1.0 mg/dL (0.7-1.3) Estimated GFR (Cockcroft-Gault) 92.2 Glucose Level 79 mg/dL (70-99) Calcium Level 8.6 mg/dL (8.5-10.1) Magnesium Level 1.7 mg/dL (1.8-2.4) Microbiology 01/25/22 Blood Culture - Preliminary, Resulted NO GROWTH AFTER 2 DAYS 01/25/22 Urine Culture - Final, Complete Medications Current Medications Ringer's Solution 1,000 ml @ 999 mls/hr 1X ONCE IV Last administered on 01/25/22 09:27; Start 01/25/22 at 09:15; Stop 01/25/22 at 10:15; Status DC Pantoprazole Sodium (PROTONIX VIAL for IV PUSH) 80 mg 1X ONCE IVP Last administered on 01/25/22at 09:39; Start 01/25/22 at 09:45; Stop 01/25/22 at 09:46; Status DC Lorazepam (Ativan Inj) 2 mg 1X ONCE IVP Last administered on 01/25/22at 09:32; Start 01/25/22 at 09:45; Stop 01/25/22 at 09:46; Status DC Thiamine HCl 500 mg/Dextrose 55 ml @ 250 mls/hr DAILY IV Last administered on 01/25/22at 09:32; Start 01/25/22 at 09:00; Stop 01/25/22 at 11:32; Status DC Multivit/ Folic Acid/Iron (Multivitamin ) 1 tab 1X ONCE PO Last administered on 01/25/22at 09:36; Start 01/25/22 at 09:45; Stop 01/25/22 at 09:46; Status DC Ondansetron HCl (Zofran) 4 mg 1X ONCE IVP Last administered on 01/25/22at 09:34; Start 01/25/22 at 09:45; Stop 01/25/22 at 09:46; Status DC Iohexol (Omnipaque 300 Mg/ml) 60 ml 1X ONCE IV Last administered on 01/25/22at 10:49; Start 01/25/22 at 10:30; Stop 01/25/22 at 10:31; Status DC Info (CONTRAST GIVEN -- Rx MONITORING) 1 each PRN DAILY PRN MC SEE COMMENTS; Start 01/25/22 at 10:30; Stop 01/27/22 at 10:29; Status DC Lorazepam (Ativan Inj) 2 mg 1X ONCE IVP Last administered on 01/25/22at 11:16; Start 01/25/22 at 11:45; Stop 01/25/22 at 11:46; Status DC Ceftriaxone Sodium (Rocephin) 1 gm 1X ONCE IVP Last administered on 01/25/22at 13:44; Start 01/25/22 at 13:00; Stop 01/25/22 at 13:01; Status DC Ondansetron HCl (Zofran) 4 mg PRN Q8HRS PRN IVP NAUSEA/VOMITING; Start 01/25/22 at 13:45; Stop 01/25/22 at 15:56; Status DC Acetaminophen (Tylenol) 650 mg PRN Q4HRS PRN PO FEVER > 100.3'F; Start 01/25/22 at 13:45; Stop 01/25/22 at 15:56; Status DC Sennosides (Senna) 17.2 mg PRN BID PRN PO CONSTIPATION; Start 01/25/22 at 15:45 Docusate Sodium (Colace) 100 mg PRN DAILY PRN PO HARD STOOLS; Start 01/25/22 at 15:45 Ondansetron HCl (Zofran) 4 mg PRN Q6HRS PRN IVP NAUSEA/VOMITING, 1st CHOICE; Start 01/25/22 at 15:45 Dextrose (Dextrose 50%-Water Syringe) 12.5 gm PRN Q15MIN PRN IV SEE COMMENTS; Start 01/25/22 at 15:45 Sodium Chloride 1,000 ml @ 100 mls/hr Q10H IV Last administered on 01/27/22at 21:41; Start 01/25/22 at 15:45 Acetaminophen (Tylenol) 650 mg PRN Q4HRS PRN PO TEMP OVER 100.4F OR MILD PAIN; Start 01/25/22 at 15:45 Lorazepam (Ativan) 0.5 mg PRN Q6HRS PRN PO ANXIETY / AGITATION; Start 01/25/22 at 15:45 Lorazepam (Ativan Inj) 0.25 mg PRN Q4HRS PRN IV ANXIETY / AGITATION; Start 01/25/22 at 15:45 Enoxaparin Sodium (Lovenox 40mg Syringe) 40 mg Q24H SQ Last administered on 01/27/22at 15:43; Start 01/25/22 at 16:00 Pantoprazole Sodium (Protonix) 40 mg DAILYAC PO Last administered on 01/28/22at 08:38; Start 01/26/22 at 07:30 Prochlorperazine Edisylate (Compazine) 10 mg PRN Q6HRS PRN IV NAUSEA/VOMITING, 2nd CHOICE; Start 01/25/22 at 15:45 Diphenhydramine HCl (Benadryl) 25 mg PRN Q6HRS PRN IVP ITCHING; Start 01/25/22 at 15:45 Diphenhydramine HCl (Benadryl) 25 mg PRN Q6HRS PRN PO ITCHING; Start 01/25/22 at 15:45 Diphenhydramine HCl (Benadryl) 25 mg PRN QHS PRN PO INSOMNIA, 1st CHOICE; Start 01/25/22 at 15:45 Zolpidem Tartrate (Ambien) 2.5 mg PRN QHS PRN PO INSOMNIA, 2nd CHOICE; Start 01/25/22 at 15:45 Thiamine HCl 300 mg/Dextrose 53 ml @ 102 mls/hr DAILY IV Last administered on 01/27/22at 09:42; Start 01/26/22 at 09:00 Folic Acid (Folic Acid) 1 mg DAILY PO Last administered on 01/28/22at 08:38; Start 01/26/22 at 09:00 Cyanocobalamin (Vitamin B-12) 1,000 mcg DAILY PO Last administered on 01/28/22at 08:38; Start 01/26/22 at 09:00 Ceftriaxone Sodium (Rocephin) 1 gm Q24H IVP ; Start 01/26/22 at 13:00; Stop 01/26/22 at 10:03; Status DC Lorazepam (Ativan) 4 mg PRN Q1HR PRN PO For CIWA 8-14; Start 01/25/22 at 16:00 Lorazepam (Ativan) 8 mg PRN Q1HR PRN PO For CIWA 15 or greater; Start 01/25/22 at 16:00 Lorazepam (Ativan Inj) 2 mg PRN Q1HR PRN IV For CIWA 8-14; Start 01/25/22 at 16:00 Lorazepam (Ativan Inj) 4 mg PRN Q1HR PRN IV For CIWA 15 or greater; Start 01/25/22 at 16:00 Haloperidol Lactate (Haldol Inj) 5 mg PRN Q4HRS PRN IVP [place] llucinatns,Confusn,Delirium; Start 01/25/22 at 16:00 Amlodipine Besylate (Norvasc) 10 mg DAILY PO Last administered on 01/28/22at 08:38; Start 01/25/22 at 20:00 Carvedilol (Coreg) 12.5 mg BIDWMEALS PO Last administered on 01/28/22at 08:38; Start 01/25/22 at 20:00 Metoprolol Tartrate (Lopressor Vial) 5 mg PRN Q6HRS PRN IVP SEE INSTRUCTIONS Last administered on 01/25/22at 23:09; Start 01/25/22 at 19:30 Magnesium Sulfate 50 ml @ 25 mls/hr 1X ONCE IV Last administered on 01/26/22at 10:49; Start 01/26/22 at 10:15; Stop 01/26/22 at 12:14; Status DC Potassium Chloride (Klor-Con) 40 meq BID PO Last administered on 01/27/22at 09:41; Start 01/26/22 at 10:00; Stop 01/27/22 at 09:59; Status DC Lactobacillus Rhamnosus (Culturelle) 1 cap BID PO Last administered on 01/28/22at 08:37; Start 01/26/22 at 21:00 Potassium Chloride/Water 100 ml @ 100 mls/hr Q1H IV Last administered on 01/27/22at 21:39; Start 01/27/22 at 11:00; Stop 01/27/22 at 14:59; Status DC Magnesium Sulfate 50 ml @ 25 mls/hr 1X ONCE IV Last administered on 01/27/22at 11:35; Start 01/27/22 at 11:00; Stop 01/27/22 at 12:59; Status DC Potassium Chloride (Klor-Con) 40 meq 1X ONCE PO ; Start 01/28/22 at 09:30; Stop 01/28/22 at 09:31 Magnesium Sulfate 50 ml @ 25 mls/hr 1X ONCE IV ; Start 01/28/22 at 09:30; Stop 01/28/22 at 11:29 Active Scripts Active Reported Bupropion Xl (Bupropion HCl) 450 Mg Tab.er.24h 150 Mg PO BID Potassium Chloride (Potassium Chloride) 20 Meq Tablet.er 20 Meq PO DAILY Cipro (Ciprofloxacin) 500 Mg/5 Ml Bozena.mc.rec 500 Mg PO BID 7 Days Carvedilol (Carvedilol) 12.5 Mg Tablet 12.5 Mg PO BIDWMEALS Amlodipine Besylate 10 Mg Tablet 10 Mg PO DAILY Vitals/I & O Vital Sign - Last 24 Hours 01/27/22 01/27/22 01/27/22 01/27/22 09:41 09:42 11:00 15:00 Temp 98.1 98.1 98.1 98.1 Pulse 91 91 83 82 Resp 18 18 B/P (MAP) 159/132 159/132 115/76 (89) 149/94 (112) Pulse Ox 96 100 O2 Delivery Room Air Room Air 01/27/22 01/27/22 01/27/22 01/27/22 17:44 19:49 20:03 23:18 Temp 98.4 98.1 98.4 98.1 Pulse 83 83 78 Resp 20 20 B/P (MAP) 115/76 125/85 (98) 129/96 (107) Pulse Ox 99 98 O2 Delivery Room Air Room Air Room Air 01/28/22 01/28/22 01/28/22 01/28/22 03:04 07:00 08:38 08:38 Temp 98.1 98.3 98.1 98.3 Pulse 76 82 82 82 Resp 20 20 B/P (MAP) 151/98 (115) 166/112 (130) 166/112 166/112 Pulse Ox 100 95 O2 Delivery Room Air Room Air Intake and Output 01/27/22 01/27/22 01/28/22 15:00 23:00 07:00 Intake Total 270 ml Output Total 200 ml 650 ml Balance -200 ml -380 ml Justicifation of Admission Dx: Justifications for Admission: Justification of Admission Dx: N/A JESSICA PAK MD Jan 28, 2022 09:24
[2022-01-28] MEDS ORDERED: MAGNESIUM SULFATE 2GM 50 ML IV ONE (09:30)
[2022-01-28] MEDS ORDERED: POTASSIUM CHLORIDE 20 MEQ TABLET.ER. PO ONE (09:30)
[2022-01-28] MEDS: THIAMINE INJ 300 MG in IV DEXTROSE 5% 50 ML IV SCH (10:25)
[2022-01-28 11:00] VITALS: BP 130/86
--- NOTE | 2022-01-28 12:12 | PDOC ---
[employer] PROGRESS NOTE Date of Service DOS: DATE: 01/28/22 TIME: 12:08 Chief Complaint Chief Complaint Assessment/Plan Difficulty walking Generalized weakness Tremors, concern for EtOH withdrawal Acute cystitis Transaminitis SARIKA due to vasomotor nephropathy Macrocytic anemia Alcohol dependence History of sepsis Admit to hospitalist service for further management [facility] protocol Cardiology consult for tachycardia Neurology consult for possible Wernicke's encephalopathy Pending B12 and TSH levels PO and IV vitamin folic acid, B1 and B12 supplementation Continue IV fluids Strict I/O Avoid nephrotoxic agents Continue empiric IV antibiotics Pending urine cultures PT OT modalities Lovenox for DVT prophylaxis Protonix GI prophylaxis ADA diet CODE STATUS full Discussed with RN and SW Disposition inpatient management as above DPOA: History of Present Illness History of Present Illness 62-year-old male with past medical history of hypertension, dyslipidemia and daily alcohol use of about 1-1/2 pints of [place] with coke daily who comes in for 3-month symptoms of tremors and difficulty walking. Patient has actually stopped drinking for the past couple days to in order to prepare for colonoscopy. Patient complains of tremulousness for a month on and off. Patient also notes intermittent lightheadedness, shortness of breath and an unsteady while ambulation. He also complains of upper abdominal pain. Over the past few days he has had a couple of falls from ground-level, but denies hitting or hurting any part of his body during the episodes. States he has fallen because he has felt unsteady. Yesterday he had 3 episodes of nonbloody vomiting followed by a single episode in which he noticed a little red blood in his vomit after some forceful retching. Patient denies fevers, headache, focal or lateralizing weakness, numbness or tingling, neck stiffness/pain/meningismus, vision changes, chest pain of any kind, lower abdominal pain of any kind, flank pain, midline back pain, dysuria, hematuria, polyuria or oliguria, changes in bowel habits, hematochezia or melena. As above, vital signs are notable for mild tachycardia and a degree of hypertension and are otherwise reassuring. Patient is alert, appropriately interactive, moving all extremities and in no acute distress. 01/26/2022 No acute events overnight. Patient seen examined bedside. Working well with physical therapy and sitting on the side of bed. Still having tremulousness. IV potassium and magnesium replaced for low levels. Evaluated by neurology and pending MRI of the brain on Friday. 01/27/2022 No acute events overnight. Patient seen examined bedside. Clinically improved. Tremors have improved. Will replace potassium magnesium with IV KCl and IV magnesium sulfate. Patient's chart, labs, images were reviewed and discussed with RN. Pending MRI tomorrow 01/28/2022 No acute events overnight. Patient seen examined bedside. Tremors are much imp roved. Pending MRI of the brain today. PT OT recommending SNF. Patient's chart, labs, images were reviewed and discussed with RN Vitals/I&O Vitals/I&O: Vital Signs Date Time Temp Pulse Resp B/P (MAP) Pulse Ox O2 Delivery O2 Flow Rate FiO2 01/28/22 11:00 98.2 83 18 130/86 (101) 98 Room Air 98.2 I & O 01/27/22 01/27/22 01/28/22 15:00 23:00 07:00 Intake Total 270 ml Output Total 200 ml 650 ml Balance -200 ml -380 ml Physical Exam General: Alert, Oriented X3 Heart: Regular rate Lungs: Clear Abdomen: Soft Extremities: No clubbing, No edema Skin: No rashes Labs Labs: Laboratory Tests Test 01/28/22 04:50 White Blood Count 4.2 x10^3/uL (4.0-11.0) Red Blood Count 2.68 x10^6/uL (4.30-5.70) Hemoglobin 9.7 g/dL (13.0-17.5) Hematocrit 30.6 % (39.0-53.0) Mean Corpuscular Volume 114 fL (79-100) Mean Corpuscular Hemoglobin 36 pg (25-35) Mean Corpuscular Hemoglobin Concent 32 g/dL (31-37) Red Cell Distribution Width 18.7 % (11.5-14.5) Platelet Count 61 x10^3/uL (140-400) Neutrophils (%) (Auto) 53 % (31-73) Lymphocytes (%) (Auto) 33 % (24-48) Monocytes (%) (Auto) 9 % (0-9) Eosinophils (%) (Auto) 4 % (0-3) Basophils (%) (Auto) 1 % (0-3) Neutrophils # (Auto) 2.2 x10^3/uL (1.8-7.7) Lymphocytes # (Auto) 1.4 x10^3/uL (1.0-4.8) Monocytes # (Auto) 0.4 x10^3/uL (0.0-1.1) Eosinophils # (Auto) 0.2 x10^3/uL (0.0-0.7) Basophils # (Auto) 0.0 x10^3/uL (0.0-0.2) Sodium Level 140 mmol/L (136-145) Potassium Level 3.6 mmol/L (3.5-5.1) Chloride Level 105 mmol/L (98-107) Carbon Dioxide Level 27 mmol/L (21-32) Anion Gap 8 (6-14) Blood Urea Nitrogen 4 mg/dL (8-26) Creatinine 1.0 mg/dL (0.7-1.3) Estimated GFR (Cockcroft-Gault) 92.2 Glucose Level 79 mg/dL (70-99) Calcium Level 8.6 mg/dL (8.5-10.1) Magnesium Level 1.7 mg/dL (1.8-2.4) Assessment and Plan Assessmemt and Plan Problems Medical Problems: (1) Alcohol withdrawal Status: Acute Comment Review of Relevant I have reviewed the following items tomasz (where applicable) has been applied. Medications: Current Medications Medications (Trade) Dose Ordered Sig/Tom Route PRN Reason Start Time Stop Time Status Last Admin Dose Admin Potassium Chloride (Klor-Con) 40 meq 1X ONCE PO 01/28/22 09:30 01/28/22 09:31 DC 01/28/22 10:25 Magnesium Sulfate 50 ml @ 25 mls/hr 1X ONCE IV 01/28/22 09:30 01/28/22 11:29 DC 01/28/22 11:49 Justifications for Admission Other Justification Alcohol withdrawal KIMBERLEE VELASQUEZ MD Jan 28, 2022 12:12
[2022-01-28] MEDS: IV NORMAL SALINE 1000ML BAG 1,000 ML IV SCH ×2 (14:00→21:39)
[2022-01-28 15:00] VITALS: BP 136/90
--- NOTE | 2022-01-28 15:04 | RAD ---
MRI BRAIN WO Date: 01/28/2022 1:36 PM Indication: gait ataxia x3 weeks, suspect alcohol-related Comparison: CT 01/25/2022. Technique: Multiplanar multisequence MRI of the brain was performed without intravenous contrast usin g the standard protocol. Findings: No acute infarct. No acute or chronic hemorrhage. The ventricles are normal in size and configuration without hydrocephalus. Mild to moderate scattered FLAIR hyperintensities in the subcortical and lila ventricular deep white matter, a nonspecific finding, most commonly seen with chronic small vessel is chemic disease. Mild to moderate cerebral volume loss. The scalp and calvarium are normal. The pituitary and sella are normal. No Chiari malformation. Mild incompletely characterized degenerative spondylosis of the visualized upper cervical spine. The visualized orbits and globes are normal. Left maxillary sinus mucus retention cysts. Right maxill mari sinus air-fluid level. The mastoid air cells are clear. Normal flow voids within the vertebral, basilar, and internal carotid arteries indicating patency. IMPRESSION: 1. No acute infarct, hemorrhage, mass, or hydrocephalus. 2. Mild to moderate chronic small vessel ischemic disease and cerebral volume loss. 3. Right maxillary sinus air-fluid level, which could represent acute sinusitis in the appropriate cl inical setting Electronically signed by: Shant Mejia MD (01/28/2022 3:02 PM) [id number]
[2022-01-28] MEDS: ENOXAPARIN 40 MG/0.4 ML SYRINGE. SQ SCH (17:51)
[2022-01-28 19:00] VITALS: BP 130/87
[2022-01-28 23:00] VITALS: BP 131/80
[2022-01-29 03:00] VITALS: BP 147/94
[2022-01-29 07:00] VITALS: BP 134/87
--- NOTE | 2022-01-29 08:34 | PDOC ---
PROGRESS NOTES Date of Service DATE: 01/29/22 TIME: 08:31 Assessment Problems Medical Problems: (1) Alcohol withdrawal Status: Acute Tremor and gait disorder consistent with alcohol abuse. I find no evidence of other neurological process on bedside examination. No evidence of acute alcohol withdrawal now. MRI is negative for other causes Mild to moderate chronic small vessel ischemic disease and cerebral volume loss. Right maxillary sinus air-fluid level, no clinical sign of acute sinusitis Plan Note that physical therapy recommends home with home health and some equipment Okay for discharge Follow-up with me as needed Patient says that he intends to remain abstinent Subjective No complaints Objective Vital Signs Date Time Temp Pulse Resp B/P (MAP) Pulse Ox O2 Delivery O2 Flow Rate FiO2 01/29/22 03:00 98.3 72 18 147/94 (111) 99 98.3 01/28/22 20:10 Room Air Intake and Output 01/29/22 07:00 Intake Total 2153 ml Output Total 240 ml Balance 1913 ml Intake Oral 1050 ml IV Total 1103 ml Output Urine Total 240 ml # Voids 2 PHYSICAL EXAM Alert. Oriented to time, place and person. PERRL. EOMI. CN: no focal findings. Muscle tone: normal. Muscle strength: 5/5 DTR: 1+ Plantar reflex: Flexor Gait: not examined in bed. Sensory exam: Normal. No cerebellar signs elicited. Review of Relevant I have reviewed the following items tomasz (where applicable) has been applied. Labs Laboratory Tests Test 01/28/22 04:50 White Blood Count 4.2 x10^3/uL (4.0-11.0) Red Blood Count 2.68 x10^6/uL (4.30-5.70) Hemoglobin 9.7 g/dL (13.0-17.5) Hematocrit 30.6 % (39.0-53.0) Mean Corpuscular Volume 114 fL (79-100) Mean Corpuscular Hemoglobin 36 pg (25-35) Mean Corpuscular Hemoglobin Concent 32 g/dL (31-37) Red Cell Distribution Width 18.7 % (11.5-14.5) Platelet Count 61 x10^3/uL (140-400) Neutrophils (%) (Auto) 53 % (31-73) Lymphocytes (%) (Auto) 33 % (24-48) Monocytes (%) (Auto) 9 % (0-9) Eosinophils (%) (Auto) 4 % (0-3) Basophils (%) (Auto) 1 % (0-3) Neutrophils # (Auto) 2.2 x10^3/uL (1.8-7.7) Lymphocytes # (Auto) 1.4 x10^3/uL (1.0-4.8) Monocytes # (Auto) 0.4 x10^3/uL (0.0-1.1) Eosinophils # (Auto) 0.2 x10^3/uL (0.0-0.7) Basophils # (Auto) 0.0 x10^3/uL (0.0-0.2) Sodium Level 140 mmol/L (136-145) Potassium Level 3.6 mmol/L (3.5-5.1) Chloride Level 105 mmol/L (98-107) Carbon Dioxide Level 27 mmol/L (21-32) Anion Gap 8 (6-14) Blood Urea Nitrogen 4 mg/dL (8-26) Creatinine 1.0 mg/dL (0.7-1.3) Estimated GFR (Cockcroft-Gault) 92.2 Glucose Level 79 mg/dL (70-99) Calcium Level 8.6 mg/dL (8.5-10.1) Magnesium Level 1.7 mg/dL (1.8-2.4) Microbiology 01/25/22 Blood Culture - Preliminary, Resulted NO GROWTH AFTER 3 DAYS 01/25/22 Urine Culture - Final, Complete Medications Current Medications Ringer's Solution 1,000 ml @ 999 mls/hr 1X ONCE IV Last administered on 01/25/22at 09:27; Start 01/25/22 at 09:15; Stop 01/25/22 at 10:15; Status DC Pantoprazole Sodium (PROTONIX VIAL for IV PUSH) 80 mg 1X ONCE IVP Last administered on 01/25/22at 09:39; Start 01/25/22 at 09:45; Stop 01/25/22 at 09:46; Status DC Lorazepam (Ativan Inj) 2 mg 1X ONCE IVP Last administered on 01/25/22at 09:32; Start 01/25/22 at 09:45; Stop 01/25/22 at 09:46; Status DC Thiamine HCl 500 mg/Dextrose 55 ml @ 250 mls/hr DAILY IV Last administered on 01/25/22at 09:32; Start 01/25/22 at 09:00; Stop 01/25/22 at 11:32; Status DC Multivit/ Folic Acid/Iron (Multivitamin ) 1 tab 1X ONCE PO Last administered on 01/25/22at 09:36; Start 01/25/22 at 09:45; Stop 01/25/22 at 09:46; Status DC Ondansetron HCl (Zofran) 4 mg 1X ONCE IVP Last administered on 01/25/22at 09:34; Start 01/25/22 at 09:45; Stop 01/25/22 at 09:46; Status DC Iohexol (Omnipaque 300 Mg/ml) 60 ml 1X ONCE IV Last administered on 01/25/22at 10:49; Start 01/25/22 at 10:30; Stop 01/25/22 at 10:31; Status DC Info (CONTRAST GIVEN -- Rx MONITORING) 1 each PRN DAILY PRN MC SEE COMMENTS; Start 01/25/22 at 10:30; Stop 01/27/22 at 10:29; Status DC Lorazepam (Ativan Inj) 2 mg 1X ONCE IVP Last administered on 01/25/22at 11:16; Start 01/25/22 at 11:45; Stop 01/25/22 at 11:46; Status DC Ceftriaxone Sodium (Rocephin) 1 gm 1X ONCE IVP Last administered on 01/25/22at 13:44; Start 01/25/22 at 13:00; Stop 01/25/22 at 13:01; Status DC Ondansetron HCl (Zofran) 4 mg PRN Q8HRS PRN IVP NAUSEA/VOMITING; Start 01/25/22 at 13:45; Stop 01/25/22 at 15:56; Status DC Acetaminophen (Tylenol) 650 mg PRN Q4HRS PRN PO FEVER > 100.3'F; Start 01/25/22 at 13:45; Stop 01/25/22 at 15:56; Status DC Sennosides (Senna) 17.2 mg PRN BID PRN PO CONSTIPATION; Start 01/25/22 at 15:45 Docusate Sodium (Colace) 100 mg PRN DAILY PRN PO HARD STOOLS; Start 01/25/22 at 15:45 Ondansetron HCl (Zofran) 4 mg PRN Q6HRS PRN IVP NAUSEA/VOMITING, 1st CHOICE; Start 01/25/22 at 15:45 Dextrose (Dextrose 50%-Water Syringe) 12.5 gm PRN Q15MIN PRN IV SEE COMMENTS; Start 01/25/22 at 15:45 Sodium Chloride 1,000 ml @ 100 mls/hr Q10H IV Last administered on 01/28/22at 21:39; Start 01/25/22 at 15:45 Acetaminophen (Tylenol) 650 mg PRN Q4HRS PRN PO TEMP OVER 100.4F OR MILD PAIN; Start 01/25/22 at 15:45 Lorazepam (Ativan) 0.5 mg PRN Q6HRS PRN PO ANXIETY / AGITATION; Start 01/25/22 at 15:45 Lorazepam (Ativan Inj) 0.25 mg PRN Q4HRS PRN IV ANXIETY / AGITATION; Start 01/25/22 at 15:45 Enoxaparin Sodium (Lovenox 40mg Syringe) 40 mg Q24H SQ Last administered on 01/28/22at 17:51; Start 01/25/22 at 16:00 Pantoprazole Sodium (Protonix) 40 mg DAILYAC PO Last administered on 01/28/22at 08:38; Start 01/26/22 at 07:30 Prochlorperazine Edisylate (Compazine) 10 mg PRN Q6HRS PRN IV NAUSEA/VOMITING, 2nd CHOICE; Start 01/25/22 at 15:45 Diphenhydramine HCl (Benadryl) 25 mg PRN Q6HRS PRN IVP ITCHING; Start 01/25/22 at 15:45 Diphenhydramine HCl (Benadryl) 25 mg PRN Q6HRS PRN PO ITCHING; Start 01/25/22 at 15:45 Diphenhydramine HCl (Benadryl) 25 mg PRN QHS PRN PO INSOMNIA, 1st CHOICE; Start 01/25/22 at 15:45 Zolpidem Tartrate (Ambien) 2.5 mg PRN QHS PRN PO INSOMNIA, 2nd CHOICE; Start 01/25/22 at 15:45 Thiamine HCl 300 mg/Dextrose 53 ml @ 102 mls/hr DAILY IV Last administered on 01/28/22 10:25; Start 01/26/22 at 09:00 Folic Acid (Folic Acid) 1 mg DAILY PO Last administered on 01/28/22 08:38; Start 01/26/22 at 09:00 Cyanocobalamin (Vitamin B-12) 1,000 mcg DAILY PO Last administered on 01/28/22 08:38; Start 01/26/22 at 09:00 Ceftriaxone Sodium (Rocephin) 1 gm Q24H IVP ; Start 01/26/22 at 13:00; Stop 01/26/22 at 10:03; Status DC Lorazepam (Ativan) 4 mg PRN Q1HR PRN PO For CIWA 8-14; Start 01/25/22 at 16:00 Lorazepam (Ativan) 8 mg PRN Q1HR PRN PO For CIWA 15 or greater; Start 01/25/22 at 16:00 Lorazepam (Ativan Inj) 2 mg PRN Q1HR PRN IV For CIWA 8-14; Start 01/25/22 at 16:00 Lorazepam (Ativan Inj) 4 mg PRN Q1HR PRN IV For CIWA 15 or greater; Start 01/25/22 at 16:00 Haloperidol Lactate (Haldol Inj) 5 mg PRN Q4HRS PRN IVP Hallucinatns,Confusn,Delirium; Start 01/25/22 at 16:00 Amlodipine Besylate (Norvasc) 10 mg DAILY PO Last administered on 01/28/22 08:38; Start 01/25/22 at 20:00 Carvedilol (Coreg) 12.5 mg BIDWMEALS PO Last administered on 01/28/22 17:52; Start 01/25/22 at 20:00 Metoprolol Tartrate (Lopressor Vial) 5 mg PRN Q6HRS PRN IVP SEE INSTRUCTIONS Last administered on 01/25/22 23:09; Start 01/25/22 at 19:30 Magnesium Sulfate 50 ml @ 25 mls/hr 1X ONCE IV Last administered on 01/26/22 10:49; Start 01/26/22 at 10:15; Stop 01/26/22 at 12:14; Status DC Potassium Chloride (Klor-Con) 40 meq BID PO Last administered on 3/6/22at 09:41 ; Start 01/26/22 at 10:00; Stop 01/27/22 at 09:59; Status DC Lactobacillus Rhamnosus (Culturelle) 1 cap BID PO Last administered on 01/28/22at 21:39; Start 01/26/22 at 21:00 Potassium Chloride/Water 100 ml @ 100 mls/hr Q1H IV Last administered on 01/27/22at 21:39; Start 01/27/22 at 11:00; Stop 01/27/22 at 14:59; Status DC Magnesium Sulfate 50 ml @ 25 mls/hr 1X ONCE IV Last administered on 01/27/22at 11:35; Start 01/27/22 at 11:00; Stop 01/27/22 at 12:59; Status DC Potassium Chloride (Klor-Con) 40 meq 1X ONCE PO Last administered on 01/28/22at 10:25; Start 01/28/22 at 09:30; Stop 01/28/22 at 09:31; Status DC Magnesium Sulfate 50 ml @ 25 mls/hr 1X ONCE IV Last administered on 01/28/22at 11:49; Start 01/28/22 at 09:30; Stop 01/28/22 at 11:29; Status DC Active Scripts Active Reported Bupropion Xl (Bupropion HCl) 450 Mg Tab.er.24h 150 Mg PO BID Potassium Chloride (Potassium Chloride) 20 Meq Tablet.er 20 Meq PO DAILY Cipro (Ciprofloxacin) 500 Mg/5 Ml Bozena.mc.rec 500 Mg PO BID 7 Days Carvedilol (Carvedilol) 12.5 Mg Tablet 12.5 Mg PO BIDWMEALS Amlodipine Besylate 10 Mg Tablet 10 Mg PO DAILY Vitals/I & O Vital Sign - Last 24 Hours 01/28/22 01/28/22 01/28/22 01/28/22 08:38 08:38 11:00 15:00 Temp 98.2 98.1 98.2 98.1 Pulse 82 82 83 81 Resp 18 18 B/P (MAP) 166/112 166/112 130/86 (101) 136/90 (105) Pulse Ox 98 98 O2 Delivery Room Air Room Air 01/28/22 01/28/22 01/28/22 01/28/22 17:52 19:00 20:10 23:00 Temp 97.6 97.9 97.6 97.9 Pulse 81 87 77 Resp 16 16 B/P (MAP) 136/90 130/87 (101) 131/80 (97) Pulse Ox 97 99 O2 Delivery Room Air 01/29/22 03:00 Temp 98.3 98.3 Pulse 72 Resp 18 B/P (MAP) 147/94 (111) Pulse Ox 99 Intake and Output 01/28/22 01/28/22 01/29/22 15:00 23:00 07:00 Intake Total 1303 ml 450 ml 400 ml Output Total 240 ml Balance 1303 ml 210 ml 400 ml Images MRI BRAIN WO Date: 01/28/2022 1:36 PM Indication: gait ataxia x3 weeks, suspect alcohol-related Comparison: CT 01/25/2022. Technique: Multiplanar multisequence MRI of the brain was performed without intravenous contrast using the standard protocol. Findings: No acute infarct. No acute or chronic hemorrhage. The ventricles are normal in size and configuration without hydrocephalus. Mild to moderate scattered FLAIR hyperintensities in the subcortical and periventricular deep white matter, a nonspecific finding, most commonly seen with chronic small vessel ischemic disease. Mild to moderate cerebral volume loss. The scalp and calvarium are normal. The pituitary and sella are normal. No Chiari malformation. Mild incompletely characterized degenerative spondylosis of the visualized upper cervical spine. The visualized orbits and globes are normal. Left maxillary sinus mucus retention cysts. Right maxillary sinus air-fluid level. The mastoid air cells are clear. Normal flow voids within the vertebral, basilar, and internal carotid arteries indicating patency. IMPRESSION: 1. No acute infarct, hemorrhage, mass, or hydrocephalus. 2. Mild to moderate chronic small vessel ischemic disease and cerebral volume loss. 3. Right maxillary sinus air-fluid level, which could represent acute sinusitis in the appropriate clinical setting Justicifation of Admission Dx: Justifications for Admission: Justification of Admission Dx: N/A JESSICA PAK MD Jan 29, 2022 08:34
[2022-01-29] MEDS: LACTOBACILLUS RHAMNOSUS GG 1 CAPSULE. PO SCH (09:04)
[2022-01-29] MEDS: CARVEDILOL 12.5 MG TABLET. PO SCH (09:04)
[2022-01-29] MEDS: THIAMINE INJ 300 MG in IV DEXTROSE 5% 50 ML IV SCH (09:04)
[2022-01-29] MEDS: FOLIC ACID 1 MG TABLET. PO SCH (09:05)
[2022-01-29] MEDS: PANTOPRAZOLE 40 MG TABLET.DR. PO SCH (09:05)
[2022-01-29] MEDS: CYANOCOBALAMIN (VITAMIN B-12) 1,000 MCG TABLET. PO SCH (09:05)
[2022-01-29] MEDS: IV NORMAL SALINE 1000ML BAG 1,000 ML IV SCH (09:45)
--- NOTE | 2022-01-29 10:11 | PDOC3 ---
Discharge Summary Visit Information Date of Admission: Jan 25, 2022 Date of Discharge: Jan 29, 2022 Final Diagnosis Tremor and gait disorder consistent with alcohol abuse. Mild to moderate chronic small vessel ischemic disease and cerebral volume loss. Difficulty walking Generalized weakness Acute EtOH withdrawal Acute cystitis Transaminitis SARIKA due to vasomotor nephropathy Macrocytic anemia Alcohol dependence History of sepsis Problems Medical Problems: (1) Alcohol withdrawal Status: Acute Brief Hospital Course Allergies Allergies Coded Allergies Type Severity Reaction Last Updated Verified No Known Drug Allergies 01/25/22 No Vital Signs Vital Signs Date Time Temp Pulse Resp B/P (MAP) Pulse Ox O2 Delivery O2 Flow Rate FiO2 01/29/22 09:05 86 134/87 01/29/22 08:00 Room Air 01/29/22 07:00 98.1 19 100 98.1 Lab Results Laboratory Tests Test 01/28/22 04:50 White Blood Count 4.2 x10^3/uL (4.0-11.0) Red Blood Count 2.68 x10^6/uL (4.30-5.70) Hemoglobin 9.7 g/dL (13.0-17.5) Hematocrit 30.6 % (39.0-53.0) Mean Corpuscular Volume 114 fL (79-100) Mean Corpuscular Hemoglobin 36 pg (25-35) Mean Corpuscular Hemoglobin Concent 32 g/dL (31-37) Red Cell Distribution Width 18.7 % (11.5-14.5) Platelet Count 61 x10^3/uL (140-400) Neutrophils (%) (Auto) 53 % (31-73) Lymphocytes (%) (Auto) 33 % (24-48) Monocytes (%) (Auto) 9 % (0-9) Eosinophils (%) (Auto) 4 % (0-3) Basophils (%) (Auto) 1 % (0-3) Neutrophils # (Auto) 2.2 x10^3/uL (1.8-7.7) Lymphocytes # (Auto) 1.4 x10^3/uL (1.0-4.8) Monocytes # (Auto) 0.4 x10^3/uL (0.0-1.1) Eosinophils # (Auto) 0.2 x10^3/uL (0.0-0.7) Basophils # (Auto) 0.0 x10^3/uL (0.0-0.2) Sodium Level 140 mmol/L (136-145) Potassium Level 3.6 mmol/L (3.5-5.1) Chloride Level 105 mmol/L (98-107) Carbon Dioxide Level 27 mmol/L (21-32) Anion Gap 8 (6-14) Blood Urea Nitrogen 4 mg/dL (8-26) Creatinine 1.0 mg/dL (0.7-1.3) Estimated GFR (Cockcroft-Gault) 92.2 Glucose Level 79 mg/dL (70-99) Calcium Level 8.6 mg/dL (8.5-10.1) Magnesium Level 1.7 mg/dL (1.8-2.4) Brief Hospital Course Mr. Linton is a 62 old male, admit with weakness, tremor, EtOH withdrawl diagnosed, drinks 1.5 pints [place] royal daily Discharge Information Condition at Discharge: Improved Follow Up: Weeks Disposition/Orders: D/C to Home Scheduled Amlodipine Besylate (Amlodipine Besylate) 10 Mg Tablet, 10 MG PO DAILY for HTN, (Reported) Entered as Reported by: LORY PINEDO on 01/25/22812 Last Taken: Unknown Dose on 01/24/22 Last Action: Continued on 01/25/221923 by IESHA QUACH Bupropion HCl (Bupropion Xl) 450 Mg Tab.er.24h, 150 MG PO BID for DEPRESSION, (Reported) Entered as Reported by: OLRY PINEDO on 01/25/22812 Last Action: Reviewed on 01/25/221808 by LIZETH FAJARDO Carvedilol (Carvedilol ) 12.5 Mg Tablet, 12.5 MG PO BIDWMEALS for CARDIAC, (Reported) Entered as Reported by: LORY PINEDO on 01/25/22812 Last Taken: Unknown Dose on 01/24/22 Last Action: Continued on 01/25/221923 by IESHA QUACH Ciprofloxacin (Cipro) 500 Mg/5 Ml Bozena.mc.rec, 500 MG PO BID for DIARRHEA for 7 Days, (Reported) Entered as Reported by: LORY PINEDO on 01/25/22812 Last Action: Reviewed on 01/25/221808 by LIZETH FAJARDO Potassium Chloride (Potassium Chloride ) 20 Meq Tablet.er, 20 MEQ PO DAILY for SUPPLEMENT, (Reported) Entered as Reported by: LORY PINEDO on 01/25/22812 Last Action: Reviewed on 01/25/221808 by LIZETH FAJARDO Patient Instructions Patient Instructions Follow-up with Dr. Dominguez Bill Justicifation of Admission Dx: Justifications for Admission: Justification of Admission Dx: N/A JOSEY KO MD Jan 29, 2022 10:11
--- NOTE | 2022-01-29 10:45 | PDOC ---
AMENA MATIAS SUGAR SAMPLER 01/29/22 1045: CARDIO Progress Notes Date and Time Date of Service 01/29/2022 Time of Evaluation 1000 Subjective Subjective: No Chest Pain, No shortness of breath, No Palpitations Vitals Vitals Vital Signs Date Time Temp Pulse Resp B/P (MAP) Pulse Ox O2 Delivery O2 Flow Rate FiO2 01/29/22 09:05 86 134/87 01/29/22 08:00 Room Air 01/29/22 07:00 98.1 19 100 98.1 Weight Weight [ ] Input and Output Intake and Output Intake and Output 01/29/22 07:00 Intake Total 2153 ml Output Total 240 ml Balance 1913 ml Intake Oral 1050 ml IV Total 1103 ml Output Urine Total 240 ml # Voids 2 Microbiology Micro Microbiology 01/25/22 Blood Culture - Preliminary, Resulted NO GROWTH AFTER 3 DAYS 01/25/22 Urine Culture - Final, Complete Physical Exam HEENT: Neck Supple W Full Motion Chest: Symmetric LUNGS: Clear to Auscultation Heart: S1S2, RRR (SR) Abdomen: Soft N/T Extremities: No Edema, No Calf Tenderness, Other (arm tremors) Neurology: alert, oriented, follow commands Assessment Assessment 1. Tremors and gait instability most probably secondary to chronic alcohol abuse. Neurology team following. Monitor for alcohol withdrawal. 2. Sinus tachycardia, physiologic secondary to withdrawal and dehydration. HNow SR after IV hydration Mg has been corrected as well. Telemetry did not show any significant arrhythmias. Continue beta-blockers. Plan 2D echo and event monitor recording as an outpatient. Follow up in office as scheduled 3. Hypertension: controlled 4. Macrocytic anemia, acute cystitis: Treat per IM 5. Hypokalemia, hypomagnesemia: Replace 6. Alcohol misuse Justicifation of Admission Dx: Justifications for Admission: Justification of Admission Dx: N/A DARÍO CARLOS MD 01/29/22 1601: CARDIO Progress Notes Assessment Assessment Patient seen and examined. Agree with [employer] DEVELOPER's assessment and plan. Sinus tachycardia physiologic, improved Continue BB Plan 2D echo as outpatient AMENA MATIAS SUGAR SAMPLER Jan 29, 2022 10:45 DARÍO CARLOS MD Jan 29, 2022 16:01
--- NOTE | 2022-01-29 10:49 | NUR ---
SW following. Discussed with RN, discharge order for home with self care. Pt is a high risk readmission due to declining discharge recommendations.
[2022-01-29 11:00] VITALS: BP 131/72
--- NOTE | 2022-01-29 12:30 | NUR ---
Discharge Note: RICHARD LOBO Discharge instructions and discharge home medications reviewed with Patient and a copy given. All questions have been answered and understanding verbalized. The following instructions and handouts were given: follow up instructions Discontinued lines and drains: 22 guage right wrist, tip intact. patient tolerated well. Patient discharged to home with self care via .
== END 2022-01-29 12:23 | disposition home or self-care (01) | DRG 689 ==
LOC: ER 08:51 → 5 NORTH 12:00
PROVIDERS: ADMIT Internal Medicine; ATTEND Internal Medicine
DX: N30.00 Acute cystitis without hematuria (principal); N17.0 Acute kidney failure with tubular necrosis; F10.239 Alcohol dependence with withdrawal, unspecified; D53.9 Nutritional anemia, unspecified; E78.00 Pure hypercholesterolemia, unspecified; E78.5 Hyperlipidemia, unspecified; E83.42 Hypomagnesemia; E86.0 Dehydration; E87.6 Hypokalemia; I10 Essential (primary) hypertension; J32.0 Chronic maxillary sinusitis; K57.30 Diverticulosis of large intestine without perforation or abscess without bleeding; K76.0 Fatty (change of) liver, not elsewhere classified; F41.9 Anxiety disorder, unspecified; K21.9 Gastro-esophageal reflux disease without esophagitis; K58.9 Irritable bowel syndrome, unspecified; Y90.0 Blood alcohol level of less than 20 mg/100 ml; Z83.3 Family history of diabetes mellitus; Z87.11 Personal history of peptic ulcer disease
CPT/HCPCS: 36415; 70450; 70551; 71045; 74177; 76705; 80048; 80053; 81001; 82248; 82607; 82977; 83605; 83690; 83735; 83880; 84100; 84443; 84484; 85025; 85610; 85730; 87040; 87086; 93005; 96361; 96365; 96375; C9113; G0480; J0696; J1650; J2060; J2405; J3411; J3475; J3480; J3490; J7030; J7060; J7120; Q9967; 97110-GP; 97116-GP; 97530-GO; 97530-GP; 97535-GO; 99285-25; G0378

== ENCOUNTER → 2022-01-25 | Day surgery (SDC) | payer OTHER ==
[~2022-01-25] MED LIST: AMLO-187 PO; BUPR450T3 PO; CARV12.511 PO; CIPR500S2 PO; HYDROmorphone 2 MG/ML INJ. IVP PRN; IV RINGERS,LACTATED 1000ML 1,000 ML IV SCH; LIDOCAINE 2% PF 5 ML VIAL. ONE; MORPHINE SULFATE 2 MG/ML INJ. IVP PRN; POTA20TA4 PO; PROCHLORPERAZINE 10 MG/2 ML VIAL. IVP PRN; PROPOFOL 10 MG/ML (20ML) VIAL. IV ONE; fentaNYL PF VIAL 100 MCG/2 ML VIAL IVP PRN
[2022-01-25 08:09] VITALS: BP 161/116
--- NOTE | 2022-01-25 08:34 | NUR ---
PT HERE IN [facility] FOR EGD AND COLON. BP 165/116, HR- 135. PT STATES HE HAS NEW ONSET OF TREMORS, STUTTERING AND WEAKNESS FOR THE LAST 2 WEEKS. ALSO STATED HE WAS THROWING UP BLOOD DURING PREP. DR GARCIA AND MAURO NOTIFIED OF PT VS AND REPORT. EKG ORDERED AND CMP. EKG SHOWING SVT. GI PROCEDURE CANCELLED. TO TAKE PT TO ER FOR EVALUATION. REPORT CALLED TO ER BEOFRE ASSISTING TO PT TO ER.
[2022-01-25 08:55] LABS: CALCIUM 9.5 mg/dL (8.5-10.1); CREATININE 1.6 mg/dL (0.7-1.3); GFR 53.6; POTASSIUM 3.7 mmol/L (3.5-5.1)
[2022-01-25 09:01] LABS: ALBUMIN 4.4 g/dL (3.4-5.0); ALBUMIN/GLOBULIN RATIO 1.1 (1.0-1.7); TOTAL BILIRUBIN 3.6 mg/dL (0.2-1.0); TOTAL PROTEIN 8.3 g/dL (6.4-8.2)
--- NOTE | 2022-01-25 15:38 | EKG ---
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
== END | disposition home or self-care (01) ==
LOC: ENDOS 07:38
PROVIDERS: ATTEND Internal Medicine Gastroenterology
DX: R13.10 Dysphagia, unspecified (principal); Z53.8 Procedure and treatment not carried out for other reasons; I10 Essential (primary) hypertension; G47.30 Sleep apnea, unspecified; K21.9 Gastro-esophageal reflux disease without esophagitis; F41.9 Anxiety disorder, unspecified; Z87.891 Personal history of nicotine dependence; Z79.899 Other long term (current) drug therapy; Z98.890 Other specified postprocedural states
CPT/HCPCS: 36415; 80053; 93005; J2704

== ENCOUNTER → 2022-02-15 | Day surgery (SDC) | payer OTHER ==
[~2022-02-15] MED LIST changes: +IV RINGERS,LACTATED 1000ML 1,000 ML IV SCH; +LIDOCAINE 2% PF 5 ML VIAL. ONE; +PROPOFOL 10 MG/ML (20ML) VIAL. IV ONE
[2022-02-15 07:06] VITALS: BP 147/97
--- NOTE | 2022-02-15 07:49 | PDOC2 ---
CONSULT Date of Consult Date of Consult DATE: 02/15/22 TIME: 07:44 Reason for Consult Reason for Consult: Nausea/vomiting with colitis on Ct scan Identification/Chief Complaint Chief Complaint 62 yo Male seen with above. He has recovered from E coli sepsis . CT scan did r eveal colitis. Bowel habits have improved without melena and/or hematochezia. Weight is stable. Appetite has improved. With the recurrent symptoms, he requests further evaluation. Past Medical History Cardiovascular: HTN Pulmonary: Other GI: GERD, Irritable bowel disease, Peptic Ulcer disease, Other Psych: Anxiety, Addictions Infectious disease: Other Past Surgical History Past Surgical History: Other (back surgery, weight loss surgery), No pertinent history Family History Family History: Diabetes, Hypertension Social History No ALCOHOL: rare Current Medications Current Medications Current Medications Ringer's Solution 1,000 ml @ 100 mls/hr Q10H IV Last administered on 02/15/22at 07:14; Start 02/15/22 at 07:15; Stop 02/16/22 at 07:14 Active Scripts Active Reported Bupropion Xl (Bupropion HCl) 450 Mg Tab.er.24h 150 Mg PO BID Potassium Chloride (Potassium Chloride) 20 Meq Tablet.er 20 Meq PO DAILY Carvedilol (Carvedilol) 12.5 Mg Tablet 12.5 Mg PO BIDWMEALS Amlodipine Besylate 10 Mg Tablet 10 Mg PO DAILY Allergies Allergies: Coded Allergies: No Known Drug Allergies (Unverified , 02/15/22) Physical Exam General: Alert, Oriented X3, Cooperative Lungs: Clear to auscultation Heart: Normal S1, Normal S2 Abdomen: Normal bowel sounds, Soft, No tenderness Vitals VITALS Vital Signs Date Time Temp Pulse Resp B/P (MAP) Pulse Ox O2 Delivery O2 Flow Rate FiO2 02/15/22 07:06 98.6 92 20 97 98.6 Assessment/Plan Assessment/Plan N/V- with weight loss . Differential includes: PUD, gastroparesis, malignancy, and/or GB disease EGD to further assess Colitis- on Ct scan interval colonoscopy to further assess. Differential includes: IBS, IBD< ischemic colitis, colon cancer, and/or infectious colitis. R/B discussed with patient who is willing to proceed. CHLAO GARCIA MD Feb 15, 2022 07:49
[2022-02-15 08:35] VITALS: BP 170/105
--- NOTE | 2022-02-18 16:16 | PATHOLOGY ---
[facility] Accession Number: [id number] . 01 Material submitted: . sigmoid colon - SIGMOID POLYP . 01 Clinical history: . N/V, DIARRHEA- BETTER BUT HX E. COLI EGD/COLON POLYP, DIVERTICULOSIS . 02 Diagnosis: Colon biopsy, sigmoid polyp: - Tubulovillous adenoma, predominantly tubular. (M:[facility]; 02/18/2022) [facility] 02/18/2022 0939 Local . 02 Comment: There is no high-grade dysplasia or evidence of malignancy. ([facility]; 02/18/2022) . 02 Electronically signed: . Crow Barker MD, Pathologist NPI- [id number] . 01 Gross description: . The specimen is received in formalin, labeled "Tom Royer, sigmoid polyp". Received is a single, dominguez-pink, irregularly-shaped, multilobulated, soft tissue fragment, measuring 1.0 cm, in greatest dimension. The specimen is bisected and entirely submitted cassette A1. (J; 02/15/2022) J/JGG 02/15/2022 1728 Local . 02 Pathologist provided ICD-10: D12.5 . 02 CPT . 234439 Specimen Comment: A courtesy copy of this report has been sent to [phone], [phone] Specimen Comment: 2422 Specimen Comment: Report sent to / DR VELASQUEZ Specimen Comment: A duplicate report has been generated due to demographic updates. Performed at: 01 [facility] [address], [place], [place] [id number] MD Cliff Patton MD Phone: [phone] Performed at: [address] [facility] [address] [place] [place], [place] [id number] MD Crow Barker MD Phone: [phone]
== END | disposition home or self-care (01) ==
LOC: ENDOS 06:51
PROVIDERS: ATTEND Internal Medicine Gastroenterology
DX: R63.4 Abnormal weight loss (principal); R19.7 Diarrhea, unspecified; R11.2 Nausea with vomiting, unspecified; D12.5 Benign neoplasm of sigmoid colon; K63.89 Other specified diseases of intestine; K29.50 Unspecified chronic gastritis without bleeding; K57.30 Diverticulosis of large intestine without perforation or abscess without bleeding; K31.89 Other diseases of stomach and duodenum; I10 Essential (primary) hypertension; G47.30 Sleep apnea, unspecified; K21.9 Gastro-esophageal reflux disease without esophagitis; F41.9 Anxiety disorder, unspecified; Z87.891 Personal history of nicotine dependence; Z79.899 Other long term (current) drug therapy; Z98.890 Other specified postprocedural states
CPT/HCPCS: 43235; 45381; 45385; C1713; J2704; 45380; 88305

== ENCOUNTER → 2022-02-28 | Outpatient (CLI) | payer OTHER ==
[2022-02-15 08:35] VITALS: BP 170/105
[~2022-02-28] VITALS: Ht 221 cm; Wt 106.6 kg
[~2022-02-28] MED LIST changes: -IV RINGERS,LACTATED 1000ML 1,000 ML IV SCH; -LIDOCAINE 2% PF 5 ML VIAL. ONE; +NORMAL SALINE IV ONE; -PROPOFOL 10 MG/ML (20ML) VIAL. IV ONE; +SINCALIDE IV ONE
--- NOTE | 2022-02-28 12:28 | RAD ---
EXAMINATION: RIGHT UPPER QUADRANT ULTRASOUND CLINICAL HISTORY: Nausea/vomiting. TECHNIQUE: Sonography of the right upper quadrant was performed. COMPARISON: None FINDINGS: Pancreas: Normal sonographic appearance. - Portions obscured: Tail Liver: - Echotexture: Normal, homogeneous. - Echogenicity: Increased, consistent with steatosis. - Surface contour: Smooth - Lesions: None. Biliary: No intrahepatic biliary duct dilation. - CBD: 5 mm. - Gallbladder: Normal caliber - Contents: No cholelithiasis - Wall: Normal - Other: No pericholecystic fluid. Right Kidney: Measures 13.4 cm in length. No hydronephrosis or focal lesion. Ascites: None. Aorta/IVC: Partially visualized aorta and IVC unremarkable. IMPRESSION: Findings consistent with hepatic steatosis. Electronically signed by: Valeriy Barreto DO (02/28/2022 12:25 PM) [id number]
--- NOTE | 2022-02-28 12:59 | RAD ---
HEPATOBILIARY SCAN WITH EJECTION FRACTION 02/28/2022 12:55 PM History: Nausea and vomiting Procedure: Serial static images are obtained of the liver and biliary system in the frontal projectio n following IV administration of 5.0 mCi of Technetium 99m Choletec. After filling of the gallbladd er, 2.13 mcg of sincalide were infused over 30 minutes and dynamic imaging continued over this period . The gallbladder ejection fraction was calculated. Findings: There is prompt hepatic clearance of tracer from the blood pool. There is homogeneous distr ibution throughout the liver. Gallbladder fills with radiotracer and empties into the small bowel. So me reflux of radiotracer into the stomach is noted. The gallbladder ejection fraction measures 97% (n ormal gallbladder EF is 35% or greater). IMPRESSION: 1. The cystic duct and common bile duct are patent. Negative for acute cholecystitis. 2. The gallbladder ejection fraction is normal 3. Some reflux of radiotracer into the stomach noted. Electronically signed by: Tom Price MD (02/28/2022 12:56 PM) [id number]
== END ==
LOC: US 07:05
PROVIDERS: ATTEND Internal Medicine Gastroenterology
DX: K21.9 Gastro-esophageal reflux disease without esophagitis (principal); R11.2 Nausea with vomiting, unspecified
CPT/HCPCS: 76705; 78227; A9537; J2805

== ENCOUNTER → 2022-02-28 | Outpatient (CLI) | payer OTHER ==
[2022-02-15 08:35] VITALS: BP 170/105
[~2022-02-28] MED LIST changes: -NORMAL SALINE IV ONE; -SINCALIDE IV ONE
--- NOTE | 2022-03-01 08:23 | CARD ---
MR#: [id number] Date of Study: 02/28/2022 Ordering Physician: DARÍO GARVEY, Referring Physician: Angel NUÑEZ: Murphy Melissa [facility] APPROVED REPORT EXAM: Two-dimensional and M-mode echocardiogram with Doppler and color Doppler. Other Information Quality : AverageHR: 80bpm Rhythm : NSR INDICATION Tachycardia RISK FACTORS Hypertension Smoking 2D DIMENSIONS Left Atrium(2D)3.6 (1.6-4.0cm)IVSd1.6 (0.7-1.1cm) Aortic Root(2D)4.1 (2.0-3.7cm)LVDd5.0 (3.9-5.9cm) LVOT Diameter2.6 (1.8-2.4cm)PWd1.6 (0.7-1.1cm) LVDs3.0 (2.5-4.0cm)FS (%) 39.5 % SV82.3 mlLVEF(%)69.8 (>50%) Aortic Valve AoV Peak Alexsander.118.0cm/sAoV VTI24.4cm AO Peak GR.5.6mmHgLVOT Peak Alexsander.100.9cm/s AO Mean GR.3mmHgAVA (VMAX)4.56cm2 Mitral Valve MV E Lbibbchm34.8cm/sMV E Peak Gr.4mmHg MV DECEL [id number] A Uotsmebq07.0cm/s MV E Mean Gr.2mmHgE/A Ratio0.7 Pulmonary Valve PV Peak Igvtovut26.0cm/s Tricuspid Valve TR P. Ltjbtbow075uz/sTR Peak Gr.15mmHg Pulmonary Vein S1 Ppddqmkd55.7cm/sD2 Qarljgym98.8cm/s LEFT VENTRICLE The left ventricle is normal size. There is moderate concentric left ventricular hypertrophy. The lef t ventricular systolic function is normal. The ejection fraction is 60-65%. There is normal LV segmen claudio wall motion. Transmitral Doppler flow pattern is Grade I-abnormal relaxation pattern. No left donna tricle thrombus noted on this study. There is no ventricular septal defect visualized. There is no le ft ventricular aneurysm. There is no mass noted in the left ventricle. RIGHT VENTRICLE The right ventricle is normal size. There is normal right ventricular wall thickness. The right ventr icular systolic function is normal. ATRIA The left atrium size is normal. The right atrium size is normal. The interatrial septum is intact wit h no evidence for an atrial septal defect or patent foramen ovale as noted on 2-D or Doppler imaging. AORTIC VALVE The aortic valve is normal in structure and function. Doppler and Color Flow revealed no significant aortic regurgitation. There is no significant aortic valvular stenosis. There is no aortic valvular v egetation. MITRAL VALVE The mitral valve is normal in structure and function. There is no evidence of mitral valve prolapse. There is no mitral valve stenosis. Doppler and Color Flow revealed no mitral valve regurgitation note d. TRICUSPID VALVE The tricuspid valve is normal in structure and function. Doppler and Color Flow revealed trace tricus pid regurgitation. There is no tricuspid valve prolapse or vegetation. There is no tricuspid valve st enosis. PULMONIC VALVE The pulmonary valve is normal in structure and function. Doppler and Color Flow revealed no pulmonic valvular regurgitation. There is no pulmonic valvular stenosis. GREAT VESSELS The aortic root is normal in size. The ascending aorta is normal in size. The pulmonary artery is nor mal. The IVC is normal in size and collapses >50% with inspiration. PERICARDIAL EFFUSION There is no pleural effusion. There is no evidence of significant pericardial effusion. Critical Notification Critical Value: No <Conclusion> The left ventricular systolic function is normal. The ejection fraction is 60-65%. There is normal LV segmental wall motion. Transmitral Doppler flow pattern is Grade I-abnormal relaxation pattern. Trace tricuspid regurgitation. There is no evidence of significant pericardial effusion. Signed by : Darío Garvey, Electronically Approved : 03/01/2022 08:22:31
== END ==
LOC: ECHO 07:21
PROVIDERS: ATTEND Internal Medicine Cardiovascular Disease
DX: I51.7 Cardiomegaly (principal); R00.0 Tachycardia, unspecified
CPT/HCPCS: 93306; C8929